=== PATIENT | female | born 1955 | race Two or more races ===

== ENCOUNTER 2019-10-03 06:39 | Inpatient (IN) | payer MEDICAID ==
[~2019-10-03] VITALS: Ht 152.4 cm; Wt 66.5 kg
[2019-10-03] MEDS ORDERED: DOXY-354 PO (07:18)
[2019-10-03] MEDS ORDERED: OXYGEN THERAPY IH SCH (08:00)
[2019-10-03 08:22] LABS: BASOPHILS % (AUTO) 0.1 % (0.0-2.0); EOSINOPHILS % (AUTO) 0 % (1.0-6.0); HEMATOCRIT 34.5 % (36-46); HEMOGLOBIN 12.1 g/dL (12.0-16.0); LYMPHOCYTES # (AUTO) 0.6 K/uL (1.0-4.8); LYMPHOCYTES % (AUTO) 5.6 % (22.0-44.0); MEAN CORPUSCULAR HEMOGLOBIN 29.5 pg (26.0-34.0); MEAN CORPUSCULAR HGB CONC 34.9 G/dL (31.0-37.0); MEAN CORPUSCULAR VOLUME 85 fL (80-100); MONOCYTES # (AUTO) 0.3 K/uL (0.1-1.0); MONOCYTES % (AUTO) 2.7 % (2.0-9.0); PLATELET COUNT (AUTO) 337 K/uL (150-450); RED BLOOD CELL COUNT(AUTO) 4.09 MIL/uL (4.00-5.20); RED CELL DISTRIBUTION WIDTH 13.5 % (11.5-14.5)
[2019-10-03 08:26] LABS: NEUTROPHILS % (AUTO) 91.6 % (40.0-70.0)
[2019-10-03 08:42] LABS: D-DIMER 0.53 mg/L FEU (0.00-0.50); PROTHROMBIN TIME 10.2 SEC (9.4-11.6)
[2019-10-03 08:58] LABS: B-TYPE NATRIURETIC PEPTIDE 174 pg/mL (0-100)
[2019-10-03 08:59] LABS: ALANINE AMINOTRANSFERASE 40 U/L (12-78); ALKALINE PHOSPHATASE 76 U/L (46-116); ANION GAP 12 mmol/L (8-16); ASPARTATE AMINOTRANSFERASE 55 U/L (15-37); BILIRUBIN,TOTAL 0.5 mg/dL (0.1-1.0); CALCIUM, TOTAL 8.5 mg/dL (8.8-10.5); CARBON DIOXIDE 25 mmol/L (22-29); CHLORIDE 100 mmol/L (98-107); CREATINE KINASE, TOTAL ONLY 444 U/L (26-192); CREATININE 0.72 mg/dL (0.60-1.30); FREE T4 (FREE THYROXINE) 1.22 ng/dL (0.76-1.46); GLOMERULAR FILTR. RATE CALC > 60 mL/min (>60); GLUCOSE,RANDOM 131 mg/dL (70-110); LACTATE DEHYDROGENASE 355 U/L (81-234); LIPASE 262 U/L (73-393); SODIUM SERUM 137 mmol/L (136-145); THYROID STIMULATING HORMONE 0.61 uIU/mL (0.36-3.74); TOTAL PROTEIN, SERUM 7.5 g/dL (6.4-8.2); UREA NITROGEN, BLOOD 11 mg/dL (7-18)
[2019-10-03 09:14] LABS: INFLUENZA TYPE A NEGATIVE FOR TYPE A (NEGATIVE); INFLUENZA TYPE B NEGATIVE FOR TYPE B (NEGATIVE)
[2019-10-03] MEDS ORDERED: AZITHROMYCIN 500 MG/NS 250 ML IV ONE (10:30)
[2019-10-03] MEDS ORDERED: ACETAMINOPHEN/CODEINE 300-30 MG TABLET PO ONE (10:30)
[2019-10-03] MEDS ORDERED: GuaiFENesin/D-METHORPHAN [SUGAR-FREE] 200-20MG/10 ML SYRUP UDCUP PO ONE (10:30)
[2019-10-03] MEDS ORDERED: CefTRIAXone 1 GM/DEXTROSE 50 ML IV ONE (10:30)
[2019-10-03] MEDS ORDERED: ACETAMINOPHEN 325 MG TABLET PO PRN (10:30)
[2019-10-03] MEDS ORDERED: 0.9% SODIUM CHLORIDE 10 ML SYRINGE IVP PRN (10:30)
[2019-10-03] MEDS ORDERED: ONDANSETRON HCL 4 MG/2 ML VIAL IVP PRN (10:30)
[2019-10-03] MEDS ORDERED: POTASSIUM CHLORIDE 10% 40 MEQ/30 ML LIQUID UDCUP PO ONE (10:30)
[2019-10-03] MEDS: OXYGEN THERAPY IH SCH ×2 (10:35→21:16)
[2019-10-03 11:20] LABS: ABG A-A DIFF O2 89.9 mmHg (10-20.0); ABG BASE EXCESS 1.6 mmol/L (-2.0-3.0); ABG CARBOXYHEMOGLOBIN 0.3 % (0.0-1.5); ABG HCO3 26.5 mmol/L (22.0-26.0); ABG METHEMOGLOBIN 0.2 % (0.0-1.5); ABG OXYGEN CONTENT 16.8 mL/dL (15.0-23.0); ABG OXYHEMOGLOBIN 94.5 % (94.0-100.0); ABG PCO2 30 mmHg (35-45); ABG PH 7.525 (7.35-7.450); ABG TOTAL HEMOGLOBIN 12.6 G/dL (12.0-18.0); SOURCE, BLOOD GAS ARTERIAL; TEMPERATURE, FAHRENHEIT, BG 98.9 FAHREN (96.0-98.6)
[2019-10-03 11:22] LABS: SITE, BLOOD GAS LFT RADIAL
[2019-10-03 11:23] LABS: O2 DEVICE,BLOOD GAS CANNULA (ROOM AIR)
[2019-10-03] MEDS ORDERED: REMDESIVIR **INVESTIGATIONAL** 200 MG in SODIUM CHLORIDE 0.9% 210 ML IV ONE (13:00)
[2019-10-03 14:43] LABS: FERRITIN 549 ng/mL (8-252)
[2019-10-03] MEDS ORDERED: HYDROCODONE/ACETAMINOPHEN 5-325 MG TABLET PO PRN (19:15)
[2019-10-03] MEDS ORDERED: IPRATROPIUM BROMIDE 0.5 MG/2.5 ML NEB SOLUTION NEB PRN (19:15)
[2019-10-03] MEDS ORDERED: ZOLPIDEM TARTRATE 5 MG TABLET PO PRN (19:15)
[2019-10-03] MEDS ORDERED: MORPHINE SULFATE 2 MG/ML SYRINGE IVP PRN (19:15)
[2019-10-03] MEDS ORDERED: ALBUTEROL SULFATE 2.5 MG/0.5 ML NEB SOLUTION NEB PRN (19:15)
[2019-10-03] MEDS ORDERED: MAGNESIUM SULFATE 2 GM/WATER 50 ML IV PRN (19:45)
[2019-10-03] MEDS ORDERED: MAGNESIUM SULFATE 4 GM/WATER 100 ML IV PRN (19:45)
[2019-10-03 20:00] VITALS: BP 141/67
[2019-10-03] MEDS: DOCUSATE SODIUM 100 MG CAPSULE PO SCH (21:18)
[2019-10-03] MEDS: MAGNESIUM OXIDE 400 MG TABLET PO PRN (21:18)
[2019-10-03] MEDS: ACETAMINOPHEN 325 MG TABLET PO PRN (21:18)
[2019-10-03] MEDS: ENOXAPARIN SODIUM 30 MG/0.3 ML PF SYRINGE SQ SCH (22:11)
[2019-10-03 23:54] VITALS: BP 104/61
[2019-10-04] VITALS (12 sets, daily range): BP systolic 105–138; BP diastolic 54–80
[2019-10-04] MEDS ORDERED: PNEUMOCOCCAL VACCINE POLYVALENT 0.5 ML VIAL [PPSV23] IM ONE (01:30)
[2019-10-04 01:51] LABS: APPEARANCE,URINE CLEAR (CLEAR); BILIRUBIN,URINE NEGATIVE (NEGATIVE); GLUCOSE, URINE (UA) NEGATIVE (NEGATIVE); KETONES,URINE NEGATIVE (NEGATIVE); LEUKOCYTE ESTERASE ,URINE NEGATIVE (NEGATIVE); NITRATE,URINE NEGATIVE (NEGATIVE); OCCULT BLOOD,URINE NEGATIVE (NEGATIVE); PH,URINE 6.5 (5.0-8.0); PROTEIN,URINE SEE CONFIRM (NEGATIVE)
[2019-10-04 01:56] LABS: AMPHET/METH SCREEN,URINE NEGATIVE (NEGATIVE); BARBITURATE SCREEN, URINE NEGATIVE (NEGATIVE); BENZODIAZEPINES SCREEN,URINE NEGATIVE (NEGATIVE); CANNABINOID SCREEN,URINE POSITIVE (NEGATIVE); COCAINE SCREEN,URINE NEGATIVE (NEGATIVE); METHADONE SCREEN, URINE NEGATIVE (NEGATIVE); OPIATE SCREEN,URINE POSITIVE (NEGATIVE)
[2019-10-04 01:58] LABS: PHENCYCLIDINE SCREEN,URINE NEGATIVE (NEGATIVE)
[2019-10-04 02:07] LABS: BACTERIA,URINE None Seen /HPF (None Seen); RBC,URINE None Seen /HPF (0-2); SQUAMOUS EPITHELIAL CELL,UR Few /LPF (None Seen); SULFOSALICYLIC ACID,URINE 1+ (Negative)
[2019-10-04] MEDS: MAGNESIUM OXIDE 400 MG TABLET PO PRN ×2 (05:40→08:41)
[2019-10-04] MEDS: PANTOPRAZOLE SODIUM 40 MG DR TABLET PO SCH (08:26)
[2019-10-04] MEDS: ENOXAPARIN SODIUM 30 MG/0.3 ML PF SYRINGE SQ SCH ×2 (08:26→20:19)
[2019-10-04] MEDS: ACETAMINOPHEN 325 MG TABLET PO PRN (08:26)
[2019-10-04] MEDS: DOCUSATE SODIUM 100 MG CAPSULE PO SCH ×2 (08:26→20:20)
[2019-10-04 08:29] LABS: RED BLOOD CELL COUNT(AUTO) 3.87 MIL/uL (4.00-5.20)
[2019-10-04 08:30] LABS: BASOPHILS % (AUTO) 0.2 % (0.0-2.0); EOSINOPHILS % (AUTO) 0 % (1.0-6.0); HEMATOCRIT 32.9 % (36-46); HEMOGLOBIN 11.6 g/dL (12.0-16.0); LYMPHOCYTES # (AUTO) 0.8 K/uL (1.0-4.8); LYMPHOCYTES % (AUTO) 9.2 % (22.0-44.0); MEAN CORPUSCULAR HEMOGLOBIN 30.1 pg (26.0-34.0); MEAN CORPUSCULAR HGB CONC 35.4 G/dL (31.0-37.0); MEAN CORPUSCULAR VOLUME 85 fL (80-100); MONOCYTES # (AUTO) 0.3 K/uL (0.1-1.0); MONOCYTES % (AUTO) 3.3 % (2.0-9.0); NEUTROPHILS # (AUTO) 7.5 K/uL (1.8-7.7); PLATELET COUNT (AUTO) 373 K/uL (150-450); RED CELL DISTRIBUTION WIDTH 13.4 % (11.5-14.5)
[2019-10-04 08:56] LABS: NEUTROPHILS % (AUTO) 87.3 % (40.0-70.0)
[2019-10-04 09:12] LABS: ALANINE AMINOTRANSFERASE 41 U/L (12-78); ALBUMIN 2.6 g/dL (3.4-5.0); ALKALINE PHOSPHATASE 69 U/L (46-116); ANION GAP 9 mmol/L (8-16); ASPARTATE AMINOTRANSFERASE 63 U/L (15-37); BILIRUBIN,TOTAL 0.4 mg/dL (0.1-1.0); C-REACTIVE PROTEIN QUANT 19.75 mg/dL (0.00-0.30); CALCIUM, TOTAL 8.4 mg/dL (8.8-10.5); CARBON DIOXIDE 26 mmol/L (22-29); CHLORIDE 104 mmol/L (98-107); CREATININE 0.68 mg/dL (0.60-1.30); FERRITIN 650 ng/mL (8-252); GLOMERULAR FILTR. RATE CALC > 60 mL/min (>60); GLUCOSE,RANDOM 113 mg/dL (70-110); POTASSIUM 3.6 mmol/L (3.5-5.1); SODIUM SERUM 139 mmol/L (136-145); UREA NITROGEN, BLOOD 16 mg/dL (7-18)
[2019-10-04] MEDS: ONDANSETRON HCL 4 MG/2 ML VIAL IVP PRN ×2 (09:21→22:21)
[2019-10-04] MEDS: REMDESIVIR **INVESTIGATIONAL** 100 MG in SODIUM CHLORIDE 0.9% 230 ML IV SCH (13:37)
[2019-10-04] MEDS ORDERED: SODIUM CHLORIDE 0.9% 250 ML IV ONE (16:50)
[2019-10-05 05:47] VITALS: BP 132/82
[2019-10-05 07:26] LABS: BASOPHILS % (AUTO) 0.1 % (0.0-2.0); EOSINOPHILS % (AUTO) 0 % (1.0-6.0); HEMATOCRIT 32.3 % (36-46); HEMOGLOBIN 11.2 g/dL (12.0-16.0); LYMPHOCYTES # (AUTO) 0.8 K/uL (1.0-4.8); LYMPHOCYTES % (AUTO) 8.7 % (22.0-44.0); MEAN CORPUSCULAR HEMOGLOBIN 29.6 pg (26.0-34.0); MEAN CORPUSCULAR HGB CONC 34.8 G/dL (31.0-37.0); MEAN CORPUSCULAR VOLUME 85 fL (80-100); MONOCYTES # (AUTO) 0.3 K/uL (0.1-1.0); MONOCYTES % (AUTO) 2.7 % (2.0-9.0); NEUTROPHILS # (AUTO) 8.5 K/uL (1.8-7.7); PLATELET COUNT (AUTO) 419 K/uL (150-450); RED BLOOD CELL COUNT(AUTO) 3.79 MIL/uL (4.00-5.20); RED CELL DISTRIBUTION WIDTH 13.4 % (11.5-14.5)
[2019-10-05 07:32] LABS: NEUTROPHILS % (AUTO) 88.5 % (40.0-70.0)
[2019-10-05 07:40] VITALS: BP 119/65
[2019-10-05 08:30] LABS: ALANINE AMINOTRANSFERASE 40 U/L (12-78); ALBUMIN 2.4 g/dL (3.4-5.0); ALKALINE PHOSPHATASE 74 U/L (46-116); ANION GAP 11 mmol/L (8-16); ASPARTATE AMINOTRANSFERASE 56 U/L (15-37); BILIRUBIN,TOTAL 0.4 mg/dL (0.1-1.0); C-REACTIVE PROTEIN QUANT 18.56 mg/dL (0.00-0.30); CALCIUM, TOTAL 8.4 mg/dL (8.8-10.5); CARBON DIOXIDE 24 mmol/L (22-29); CHLORIDE 104 mmol/L (98-107); CREATININE 0.67 mg/dL (0.60-1.30); FERRITIN 731 ng/mL (8-252); GLOMERULAR FILTR. RATE CALC > 60 mL/min (>60); GLUCOSE,RANDOM 114 mg/dL (70-110); POTASSIUM 3.5 mmol/L (3.5-5.1); SODIUM SERUM 139 mmol/L (136-145); TOTAL PROTEIN, SERUM 6.9 g/dL (6.4-8.2); UREA NITROGEN, BLOOD 17 mg/dL (7-18)
[2019-10-05] MEDS: PANTOPRAZOLE SODIUM 40 MG DR TABLET PO SCH (08:41)
[2019-10-05] MEDS: ACETAMINOPHEN 325 MG TABLET PO PRN (08:41)
[2019-10-05] MEDS: DOCUSATE SODIUM 100 MG CAPSULE PO SCH ×2 (08:41→21:46)
[2019-10-05] MEDS: ENOXAPARIN SODIUM 30 MG/0.3 ML PF SYRINGE SQ SCH ×2 (08:42→21:46)
[2019-10-05 11:35] VITALS: BP 100/48
[2019-10-05] MEDS: REMDESIVIR **INVESTIGATIONAL** 100 MG in SODIUM CHLORIDE 0.9% 230 ML IV SCH (12:51)
[2019-10-05] MEDS: ONDANSETRON HCL 4 MG/2 ML VIAL IVP PRN (15:57)
[2019-10-05 16:30] VITALS: BP 117/61
[2019-10-05 20:39] VITALS: BP 126/60
[2019-10-05] MEDS: BENZONATATE 100 MG CAPSULE PO PRN (22:02)
[2019-10-06 00:57] VITALS: BP 129/61
[2019-10-06 05:13] VITALS: BP 112/44
[2019-10-06] MEDS: ONDANSETRON HCL 4 MG/2 ML VIAL IVP PRN (05:28)
[2019-10-06] MEDS: ACETAMINOPHEN 325 MG TABLET PO PRN ×2 (05:29→10:36)
[2019-10-06 07:17] LABS: BASOPHILS % (AUTO) 0.1 % (0.0-2.0); EOSINOPHILS % (AUTO) 0 % (1.0-6.0); HEMOGLOBIN 11.4 g/dL (12.0-16.0); LYMPHOCYTES # (AUTO) 0.6 K/uL (1.0-4.8); LYMPHOCYTES % (AUTO) 5.4 % (22.0-44.0); MEAN CORPUSCULAR HEMOGLOBIN 29.6 pg (26.0-34.0); MEAN CORPUSCULAR HGB CONC 34.6 G/dL (31.0-37.0); MEAN CORPUSCULAR VOLUME 85 fL (80-100); MONOCYTES # (AUTO) 0.3 K/uL (0.1-1.0); MONOCYTES % (AUTO) 2.6 % (2.0-9.0); NEUTROPHILS # (AUTO) 9.5 K/uL (1.8-7.7); PLATELET COUNT (AUTO) 512 K/uL (150-450); RED BLOOD CELL COUNT(AUTO) 3.86 MIL/uL (4.00-5.20); RED CELL DISTRIBUTION WIDTH 13.6 % (11.5-14.5)
[2019-10-06 07:27] LABS: NEUTROPHILS % (AUTO) 91.9 % (40.0-70.0)
[2019-10-06 07:50] VITALS: BP 104/46
[2019-10-06 07:53] LABS: ALANINE AMINOTRANSFERASE 36 U/L (12-78); ALBUMIN 2.3 g/dL (3.4-5.0); ALKALINE PHOSPHATASE 83 U/L (46-116); ANION GAP 13 mmol/L (8-16); ASPARTATE AMINOTRANSFERASE 50 U/L (15-37); BILIRUBIN,TOTAL 0.6 mg/dL (0.1-1.0); CALCIUM, TOTAL 8.1 mg/dL (8.8-10.5); CARBON DIOXIDE 23 mmol/L (22-29); CHLORIDE 104 mmol/L (98-107); CREATININE 0.75 mg/dL (0.60-1.30); FERRITIN 562 ng/mL (8-252); GLOMERULAR FILTR. RATE CALC > 60 mL/min (>60); GLUCOSE,RANDOM 135 mg/dL (70-110); SODIUM SERUM 140 mmol/L (136-145); TOTAL PROTEIN, SERUM 6.9 g/dL (6.4-8.2); UREA NITROGEN, BLOOD 15 mg/dL (7-18)
[2019-10-06] MEDS ORDERED: SODIUM CHLORIDE 0.9% 500 ML IV ONE (08:22)
[2019-10-06 08:26] LABS: C-REACTIVE PROTEIN QUANT 27.05 mg/dL (0.00-0.30)
[2019-10-06] MEDS: POTASSIUM CHL 10 MEQ/WATER 50 ML IV PRN ×6 (08:29→21:44)
[2019-10-06] MEDS: BENZONATATE 100 MG CAPSULE PO PRN (08:31)
[2019-10-06] MEDS: ENOXAPARIN SODIUM 30 MG/0.3 ML PF SYRINGE SQ SCH ×2 (08:31→21:37)
[2019-10-06] MEDS: PANTOPRAZOLE SODIUM 40 MG DR TABLET PO SCH (08:31)
[2019-10-06] MEDS: DOCUSATE SODIUM 100 MG CAPSULE PO SCH ×2 (08:31→20:19)
[2019-10-06 10:59] LABS: ABG A-A DIFF O2 623.2 mmHg (10-20.0); ABG BASE EXCESS -3.9 mmol/L (-2.0-3.0); ABG CARBOXYHEMOGLOBIN 0.6 % (0.0-1.5); ABG HCO3 22.1 mmol/L (22.0-26.0); ABG METHEMOGLOBIN 0.1 % (0.0-1.5); ABG OXYGEN CONTENT 18.5 mL/dL (15.0-23.0); ABG OXYGEN SATURATION 87.4 % (95.0-98.0); ABG OXYHEMOGLOBIN 86.8 % (94.0-100.0); ABG PCO2 31 mmHg (35-45); ABG PH 7.433 (7.35-7.450); ABG TOTAL HEMOGLOBIN 15.2 G/dL (12.0-18.0); PO2, ARTERIAL BG 56.3 mmHg (79.0-87.0); SOURCE, BLOOD GAS ARTERIAL; TEMPERATURE, FAHRENHEIT, BG 100.2 FAHREN (96.0-98.6)
[2019-10-06 11:00] LABS: O2 DEVICE,BLOOD GAS HFNC (ROOM AIR); SITE, BLOOD GAS LFT RADIAL
[2019-10-06] MEDS ORDERED: ROCURONIUM BROMIDE 10 MG/ML 5 ML VIAL IVP ONE (12:00)
[2019-10-06] MEDS ORDERED: LIDOCAINE/PF 2% 5 ML VIAL INJ ONE (12:00)
[2019-10-06] MEDS ORDERED: PROPOFOL 1% 20 ML VIAL IVP ONE (12:00)
[2019-10-06 12:25] VITALS: BP 111/60
[2019-10-06] MEDS ORDERED: MIDAZOLAM HCL 2 MG/2 ML VIAL ONE (12:30)
[2019-10-06] MEDS ORDERED: FentaNYL CITRATE-PF 100 MCG/2 ML VIAL ONE (12:31)
[2019-10-06] MEDS ORDERED: HEPARIN SODIUM 1000 UNITS/NS 500 ML ONE (12:52)
[2019-10-06] MEDS ORDERED: PROPOFOL 1000 MG/ISO-OSM 100 ML IV ONE (13:38)
[2019-10-06] MEDS ORDERED: NOREPINEPHRINE 4 MG/D5%-WATER 250 ML IV ONE (13:43)
[2019-10-06] MEDS ORDERED: PHENYLEPHRINE HCL IN 0.9% NACL 400 MCG/10 ML SYRINGE IVP ONE (13:50)
[2019-10-06] MEDS ORDERED: MIDAZOLAM HCL 100 MG in DEXTROSE 5%-WATER 180 ML IV PRN (14:31)
[2019-10-06 15:28] LABS: ABG A-A DIFF O2 589.8 mmHg (10-20.0); ABG HCO3 21.3 mmol/L (22.0-26.0); ABG METHEMOGLOBIN 0.1 % (0.0-1.5); ABG OXYGEN CONTENT 16.2 mL/dL (15.0-23.0); ABG OXYGEN SATURATION 94.3 % (95.0-98.0); ABG OXYHEMOGLOBIN 94.2 % (94.0-100.0); ABG PCO2 41 mmHg (35-45); ABG PH 7.343 (7.35-7.450); ABG TOTAL HEMOGLOBIN 12.2 G/dL (12.0-18.0); PO2, ARTERIAL BG 82.2 mmHg (79.0-87.0); SOURCE, BLOOD GAS ARTERIAL; TEMPERATURE, FAHRENHEIT, BG 98.6 FAHREN (96.0-98.6)
[2019-10-06 15:29] LABS: BASOPHILS % (AUTO) 0.5 % (0.0-2.0); EOSINOPHILS % (AUTO) 0.1 % (1.0-6.0); HEMOGLOBIN 11.3 g/dL (12.0-16.0); LYMPHOCYTES # (AUTO) 0.5 K/uL (1.0-4.8); LYMPHOCYTES % (AUTO) 4.5 % (22.0-44.0); MEAN CORPUSCULAR HEMOGLOBIN 29.3 pg (26.0-34.0); MEAN CORPUSCULAR HGB CONC 34.2 G/dL (31.0-37.0); MEAN CORPUSCULAR VOLUME 86 fL (80-100); MONOCYTES # (AUTO) 0.2 K/uL (0.1-1.0); MONOCYTES % (AUTO) 2.1 % (2.0-9.0); NEUTROPHILS # (AUTO) 9.6 K/uL (1.8-7.7); PLATELET COUNT (AUTO) 457 K/uL (150-450); RED BLOOD CELL COUNT(AUTO) 3.86 MIL/uL (4.00-5.20); RED CELL DISTRIBUTION WIDTH 13.6 % (11.5-14.5)
[2019-10-06 15:30] LABS: O2 DEVICE,BLOOD GAS VENTILATOR (ROOM AIR); PEEP,BG 10 cm H2O; SITE, BLOOD GAS A-LINE; VT, ABG 400 ml
[2019-10-06] MEDS: REMDESIVIR **INVESTIGATIONAL** 100 MG in SODIUM CHLORIDE 0.9% 230 ML IV SCH (15:32)
[2019-10-06 15:36] LABS: NEUTROPHILS % (AUTO) 92.8 % (40.0-70.0)
[2019-10-06 15:41] LABS: ANION GAP 13 mmol/L (8-16); CALCIUM, TOTAL 8.4 mg/dL (8.8-10.5); CARBON DIOXIDE 23 mmol/L (22-29); CHLORIDE 107 mmol/L (98-107); CREATININE 0.69 mg/dL (0.60-1.30); GLOMERULAR FILTR. RATE CALC > 60 mL/min (>60); GLUCOSE,RANDOM 147 mg/dL (70-110); POTASSIUM 3.2 mmol/L (3.5-5.1); SODIUM SERUM 143 mmol/L (136-145); UREA NITROGEN, BLOOD 19 mg/dL (7-18)
[2019-10-06 15:57] LABS: ALANINE AMINOTRANSFERASE 35 U/L (12-78); ALBUMIN 2.2 g/dL (3.4-5.0); ALKALINE PHOSPHATASE 92 U/L (46-116); ASPARTATE AMINOTRANSFERASE 55 U/L (15-37); BILIRUBIN,TOTAL 0.7 mg/dL (0.1-1.0); FERRITIN 535 ng/mL (8-252)
[2019-10-06 16:00] VITALS: BP 112/54
[2019-10-06 16:06] LABS: INR 1.2 (0.9-1.1); PROTHROMBIN TIME 11.8 SEC (9.4-11.6)
[2019-10-06 16:09] LABS: C-REACTIVE PROTEIN QUANT 27.73 mg/dL (0.00-0.30)
[2019-10-06] MEDS ORDERED: CISATRACURIUM BESYLATE 20 MG in DEXTROSE 5%-WATER 98 ML IV PRN (16:20)
[2019-10-06] MEDS ORDERED: DEXTROSE 5% IV PRN (16:30)
[2019-10-06] MEDS ORDERED: CISATRACURIUM BESYLATE IV PRN (16:30)
[2019-10-06] MEDS ORDERED: WATER IV PRN (16:30)
[2019-10-06] MEDS ORDERED: SODIUM CHLORIDE 0.9% 250 ML IV ONE (18:17)
[2019-10-06] MEDS: PROPOFOL 1000 MG/ISO-OSM 100 ML IV PRN (18:51)
[2019-10-06] MEDS: CISATRACURIUM BESYLATE 50 MG in DEXTROSE 5%-WATER 245 ML IV PRN (19:23)
[2019-10-06] MEDS: NOREPINEPHRINE 4 MG/D5%-WATER 250 ML IV PRN (19:46)
[2019-10-06 20:00] VITALS: BP 109/60
[2019-10-06] MEDS ORDERED: ZOLPIDEM TARTRATE 10 MG TABLET PO PRN (21:30)
[2019-10-06 23:46] LABS: APPEARANCE,URINE CLOUDY (CLEAR); GLUCOSE, URINE (UA) 250 mg/dL (NEGATIVE); KETONES,URINE NEGATIVE (NEGATIVE); LEUKOCYTE ESTERASE ,URINE NEGATIVE (NEGATIVE); NITRATE,URINE NEGATIVE (NEGATIVE); OCCULT BLOOD,URINE NEGATIVE (NEGATIVE); PH,URINE 5.5 (5.0-8.0); PROTEIN,URINE SEE CONFIRM (NEGATIVE)
[2019-10-06 23:52] LABS: BILIRUBIN,URINE PRELIM. POSITIVE (NEGATIVE)
[2019-10-07] VITALS: BP 116/59
[2019-10-07] MEDS ORDERED: VANCOMYCIN HCL 1 GM/D5% WATER 200 ML IV SCH
[2019-10-07] MEDS: PROPOFOL 1000 MG/ISO-OSM 100 ML IV PRN ×4 (00:05→20:08)
[2019-10-07] MEDS: POTASSIUM CHL 10 MEQ/WATER 50 ML IV PRN (00:13)
[2019-10-07 00:15] LABS: BACTERIA,URINE Few /HPF (None Seen); RBC,URINE None Seen /HPF (0-2); SQUAMOUS EPITHELIAL CELL,UR Few /LPF (None Seen); SULFOSALICYLIC ACID,URINE 3+ (Negative); WBC,URINE 0-2 /HPF (0-5); YEAST,URINE None Seen /HPF (None Seen)
[2019-10-07] MEDS ORDERED: VANCOMYCIN HCL 1.25 GM in DEXTROSE 5%-WATER 250 ML IV ONE (00:30)
[2019-10-07] MEDS: PIPERACILLIN/TAZO 3.375 GM/D5W 50 ML IV SCH ×5 (00:45→19:46)
[2019-10-07] MEDS: CISATRACURIUM BESYLATE 50 MG in DEXTROSE 5%-WATER 245 ML IV PRN ×4 (01:46→22:57)
[2019-10-07] MEDS: FentaNYL CITRATE PF 500 MCG in DEXTROSE 5%-WATER 90 ML IV PRN ×4 (02:00→21:28)
[2019-10-07] MEDS: NOREPINEPHRINE 4 MG/D5%-WATER 250 ML IV PRN ×4 (02:50→19:20)
[2019-10-07 04:00] VITALS: BP 143/71
[2019-10-07] MEDS ORDERED: HEPARIN SODIUM 1000 UNITS/NS 500 ML ONE (04:06)
[2019-10-07 07:10] LABS: BASOPHILS % (AUTO) 0.1 % (0.0-2.0); EOSINOPHILS % (AUTO) 0.6 % (1.0-6.0); HEMATOCRIT 31.8 % (36-46); HEMOGLOBIN 10.7 g/dL (12.0-16.0); LYMPHOCYTES # (AUTO) 0.5 K/uL (1.0-4.8); LYMPHOCYTES % (AUTO) 4.3 % (22.0-44.0); MEAN CORPUSCULAR HEMOGLOBIN 28.8 pg (26.0-34.0); MEAN CORPUSCULAR HGB CONC 33.7 G/dL (31.0-37.0); MEAN CORPUSCULAR VOLUME 86 fL (80-100); MONOCYTES # (AUTO) 0.2 K/uL (0.1-1.0); MONOCYTES % (AUTO) 1.9 % (2.0-9.0); NEUTROPHILS # (AUTO) 10.3 K/uL (1.8-7.7); PLATELET COUNT (AUTO) 364 K/uL (150-450); RED BLOOD CELL COUNT(AUTO) 3.72 MIL/uL (4.00-5.20); RED CELL DISTRIBUTION WIDTH 14.1 % (11.5-14.5)
[2019-10-07 07:12] LABS: NEUTROPHILS % (AUTO) 93.1 % (40.0-70.0)
[2019-10-07 07:27] LABS: ALANINE AMINOTRANSFERASE 30 U/L (12-78); ALKALINE PHOSPHATASE 84 U/L (46-116); ANION GAP 10 mmol/L (8-16); ASPARTATE AMINOTRANSFERASE 35 U/L (15-37); BILIRUBIN,TOTAL 0.6 mg/dL (0.1-1.0); CALCIUM, TOTAL 7.7 mg/dL (8.8-10.5); CARBON DIOXIDE 26 mmol/L (22-29); CHLORIDE 101 mmol/L (98-107); CREATININE 0.74 mg/dL (0.60-1.30); FERRITIN 511 ng/mL (8-252); GLOMERULAR FILTR. RATE CALC > 60 mL/min (>60); GLUCOSE,RANDOM 216 mg/dL (70-110); SODIUM SERUM 137 mmol/L (136-145); TOTAL PROTEIN, SERUM 6.7 g/dL (6.4-8.2); UREA NITROGEN, BLOOD 16 mg/dL (7-18)
[2019-10-07 08:00] VITALS: BP 110/59
[2019-10-07] MEDS: DOCUSATE SODIUM 100 MG CAPSULE PO SCH ×2 (08:07→20:56)
[2019-10-07] MEDS: VANCOMYCIN HCL 750 MG in DEXTROSE 5%-WATER 250 ML IV SCH ×2 (08:07→15:47)
[2019-10-07] MEDS: PANTOPRAZOLE SODIUM 40 MG DR TABLET PO SCH (08:07)
[2019-10-07] MEDS: ACETAMINOPHEN 325 MG TABLET PO PRN ×2 (08:07→13:54)
[2019-10-07] MEDS: ENOXAPARIN SODIUM 30 MG/0.3 ML PF SYRINGE SQ SCH ×2 (08:08→20:56)
[2019-10-07 12:00] VITALS: BP 124/61
[2019-10-07 12:11] LABS: ABG A-A DIFF O2 411.5 mmHg (10-20.0); ABG BASE EXCESS -2.1 mmol/L (-2.0-3.0); ABG CARBOXYHEMOGLOBIN 0.2 % (0.0-1.5); ABG HCO3 22.6 mmol/L (22.0-26.0); ABG METHEMOGLOBIN 0.3 % (0.0-1.5); ABG OXYGEN CONTENT 14.9 mL/dL (15.0-23.0); ABG OXYHEMOGLOBIN 91.5 % (94.0-100.0); ABG PCO2 48 mmHg (35-45); ABG TOTAL HEMOGLOBIN 11.6 G/dL (12.0-18.0); SOURCE, BLOOD GAS ARTERIAL; TEMPERATURE, FAHRENHEIT, BG 101.6 FAHREN (96.0-98.6)
[2019-10-07 12:12] LABS: O2 DEVICE,BLOOD GAS VENTILATOR (ROOM AIR); PEEP,BG 10 cm H2O; SITE, BLOOD GAS ARTERIAL LINE; VT, ABG 400 ml
[2019-10-07] MEDS: REMDESIVIR **INVESTIGATIONAL** 100 MG in SODIUM CHLORIDE 0.9% 230 ML IV SCH (13:54)
[2019-10-07 16:00] VITALS: BP 122/61
[2019-10-07 20:00] VITALS: BP 124/54
[2019-10-07] MEDS: DEXAMETHASONE SOD PHOS 4 MG/ML VIAL IVP SCH (23:52)
[2019-10-08] VITALS: BP 67/41
[2019-10-08] MEDS ORDERED: SODIUM CHLORIDE 0.9% 250 ML IV ONE (00:11)
[2019-10-08] MEDS: VANCOMYCIN HCL 750 MG in DEXTROSE 5%-WATER 250 ML IV SCH (00:35)
[2019-10-08] MEDS: PROPOFOL 1000 MG/ISO-OSM 100 ML IV PRN ×3 (00:36→17:24)
[2019-10-08] MEDS: NOREPINEPHRINE 4 MG/D5%-WATER 250 ML IV PRN ×5 (00:39→21:49)
[2019-10-08] MEDS: FentaNYL CITRATE PF 500 MCG in DEXTROSE 5%-WATER 90 ML IV PRN ×2 (00:48→09:08)
[2019-10-08] MEDS: ACETAMINOPHEN 325 MG TABLET PO PRN (02:00)
[2019-10-08] MEDS: CISATRACURIUM BESYLATE 50 MG in DEXTROSE 5%-WATER 245 ML IV PRN ×3 (03:56→20:46)
[2019-10-08 04:00] VITALS: BP 157/65
[2019-10-08 05:50] LABS: BASOPHILS % (AUTO) 0.1 % (0.0-2.0); EOSINOPHILS % (AUTO) 0.4 % (1.0-6.0); HEMATOCRIT 32.8 % (36-46); HEMOGLOBIN 10.9 g/dL (12.0-16.0); LYMPHOCYTES # (AUTO) 0.3 K/uL (1.0-4.8); LYMPHOCYTES % (AUTO) 2.2 % (22.0-44.0); MEAN CORPUSCULAR HEMOGLOBIN 28.8 pg (26.0-34.0); MEAN CORPUSCULAR HGB CONC 33.2 G/dL (31.0-37.0); MEAN CORPUSCULAR VOLUME 87 fL (80-100); MONOCYTES # (AUTO) 0.3 K/uL (0.1-1.0); MONOCYTES % (AUTO) 2.7 % (2.0-9.0); PLATELET COUNT (AUTO) 267 K/uL (150-450); RED BLOOD CELL COUNT(AUTO) 3.77 MIL/uL (4.00-5.20); RED CELL DISTRIBUTION WIDTH 13.8 % (11.5-14.5)
[2019-10-08 06:49] LABS: ALBUMIN 1.7 g/dL (3.4-5.0); BILIRUBIN,TOTAL 0.6 mg/dL (0.1-1.0); CREATININE 1.02 mg/dL (0.60-1.30); POTASSIUM 4.3 mmol/L (3.5-5.1); TOTAL PROTEIN, SERUM 6.3 g/dL (6.4-8.2); VANCOMYCIN,RANDOM 14.2 mcg/mL (25.0-50.0)
[2019-10-08] MEDS: PIPERACILLIN/TAZO 3.375 GM/D5W 50 ML IV SCH ×3 (06:52→19:47)
[2019-10-08 07:01] LABS: C-REACTIVE PROTEIN QUANT 35.36 mg/dL (0.00-0.30)
[2019-10-08 07:25] LABS: NEUTROPHILS % (AUTO) 94.6 % (40.0-70.0)
[2019-10-08 08:00] VITALS: BP 136/58
[2019-10-08] MEDS: VANCOMYCIN HCL 1.25 GM in DEXTROSE 5%-WATER 250 ML IV SCH ×2 (09:06→16:29)
[2019-10-08] MEDS: DOCUSATE SODIUM 100 MG CAPSULE PO SCH ×2 (09:06→20:09)
[2019-10-08] MEDS: DEXAMETHASONE SOD PHOS 4 MG/ML VIAL IVP SCH ×2 (09:06→16:29)
[2019-10-08] MEDS: ENOXAPARIN SODIUM 30 MG/0.3 ML PF SYRINGE SQ SCH (09:06)
[2019-10-08] MEDS: PANTOPRAZOLE SODIUM 40 MG DR TABLET PO SCH (09:10)
[2019-10-08 12:00] VITALS: BP 123/53
[2019-10-08] MEDS: REMDESIVIR **INVESTIGATIONAL** 100 MG in SODIUM CHLORIDE 0.9% 230 ML IV SCH (14:23)
[2019-10-08 16:00] VITALS: BP 137/62
[2019-10-08 20:00] VITALS: BP 131/68
[2019-10-08] MEDS: ENOXAPARIN SODIUM 80 MG/0.8 ML PF SYRINGE SQ SCH (20:11)
[2019-10-09] VITALS: BP 128/57
[2019-10-09] MEDS: VANCOMYCIN HCL 1.25 GM in DEXTROSE 5%-WATER 250 ML IV SCH ×3 (00:04→15:55)
[2019-10-09] MEDS: DEXAMETHASONE SOD PHOS 4 MG/ML VIAL IVP SCH ×3 (00:05→16:02)
[2019-10-09] MEDS ORDERED: SODIUM CHLORIDE 0.9% 250 ML IV ONE (00:06)
[2019-10-09] MEDS: PROPOFOL 1000 MG/ISO-OSM 100 ML IV PRN ×3 (00:09→19:47)
[2019-10-09] MEDS: PIPERACILLIN/TAZO 3.375 GM/D5W 50 ML IV SCH ×4 (00:10→19:05)
[2019-10-09] MEDS: CISATRACURIUM BESYLATE 50 MG in DEXTROSE 5%-WATER 245 ML IV PRN ×3 (02:12→17:23)
[2019-10-09 04:00] VITALS: BP 121/58
[2019-10-09 05:44] LABS: BASOPHILS % (AUTO) 0.1 % (0.0-2.0); EOSINOPHILS % (AUTO) 0 % (1.0-6.0); HEMATOCRIT 29.5 % (36-46); HEMOGLOBIN 10.3 g/dL (12.0-16.0); LYMPHOCYTES # (AUTO) 0.4 K/uL (1.0-4.8); LYMPHOCYTES % (AUTO) 3.9 % (22.0-44.0); MEAN CORPUSCULAR HEMOGLOBIN 29.8 pg (26.0-34.0); MEAN CORPUSCULAR HGB CONC 34.7 G/dL (31.0-37.0); MEAN CORPUSCULAR VOLUME 86 fL (80-100); MONOCYTES # (AUTO) 0.3 K/uL (0.1-1.0); MONOCYTES % (AUTO) 3.4 % (2.0-9.0); NEUTROPHILS # (AUTO) 9.1 K/uL (1.8-7.7); PLATELET COUNT (AUTO) 231 K/uL (150-450); RED BLOOD CELL COUNT(AUTO) 3.44 MIL/uL (4.00-5.20); RED CELL DISTRIBUTION WIDTH 13.8 % (11.5-14.5)
[2019-10-09 05:55] LABS: NEUTROPHILS % (AUTO) 92.6 % (40.0-70.0)
[2019-10-09 06:09] LABS: ALANINE AMINOTRANSFERASE 22 U/L (12-78); ALBUMIN 1.5 g/dL (3.4-5.0); ALKALINE PHOSPHATASE 70 U/L (46-116); ANION GAP 7 mmol/L (8-16); ASPARTATE AMINOTRANSFERASE 20 U/L (15-37); BILIRUBIN,TOTAL 0.4 mg/dL (0.1-1.0); CALCIUM, TOTAL 8.1 mg/dL (8.8-10.5); CARBON DIOXIDE 31 mmol/L (22-29); CHLORIDE 100 mmol/L (98-107); CREATININE 0.77 mg/dL (0.60-1.30); FERRITIN 592 ng/mL (8-252); GLOMERULAR FILTR. RATE CALC > 60 mL/min (>60); GLUCOSE,RANDOM 313 mg/dL (70-110); POTASSIUM 3.5 mmol/L (3.5-5.1); SODIUM SERUM 138 mmol/L (136-145); TOTAL PROTEIN, SERUM 6.2 g/dL (6.4-8.2); UREA NITROGEN, BLOOD 19 mg/dL (7-18)
[2019-10-09 06:28] LABS: C-REACTIVE PROTEIN QUANT 25.69 mg/dL (0.00-0.30)
[2019-10-09 08:00] VITALS: BP 118/45
[2019-10-09] MEDS: ENOXAPARIN SODIUM 80 MG/0.8 ML PF SYRINGE SQ SCH (08:50)
[2019-10-09] MEDS: DOCUSATE SODIUM 100 MG CAPSULE PO SCH ×2 (08:50→21:09)
[2019-10-09] MEDS: PANTOPRAZOLE SODIUM 40 MG DR TABLET PO SCH (08:50)
[2019-10-09 12:00] VITALS: BP 118/62
[2019-10-09] MEDS: REMDESIVIR **INVESTIGATIONAL** 100 MG in SODIUM CHLORIDE 0.9% 230 ML IV SCH (12:49)
[2019-10-09] MEDS: POTASSIUM CHLORIDE 20 MEQ ER TABLET PO PRN (13:13)
[2019-10-09] MEDS ORDERED: HEPARIN SODIUM,PORCINE 5,000 UNITS/ML VIAL IVP ONE (14:15)
[2019-10-09] MEDS: HEPARIN SODIUM 25000 UNITS/D5W 250 ML IV PRN (15:54)
[2019-10-09 16:00] VITALS: BP 174/69
[2019-10-09] MEDS: LEVOFLOXACIN 750 MG/D5% WATER 150 ML IV SCH (16:11)
[2019-10-09 16:27] LABS: QUANTIFERON+, Nil Value 0.01 IU/mL; QUANTIFERON+,Mitogen Value 0.07 IU/mL; QUANTIFERON+,TB1 Antigen Value 0.02 IU/mL; QUANTIFERON, TB GOLD PLUS Indeterminate (Negative)
[2019-10-09 20:00] VITALS: BP 143/64
[2019-10-09 20:51] LABS: MAGNESIUM 2.2 mg/dL (1.80-2.40); POTASSIUM 4.3 mmol/L (3.5-5.1)
[2019-10-10] VITALS: BP 154/63
[2019-10-10] MEDS: DEXAMETHASONE SOD PHOS 4 MG/ML VIAL IVP SCH ×3 (00:26→16:10)
[2019-10-10] MEDS: PIPERACILLIN/TAZO 3.375 GM/D5W 50 ML IV SCH ×4 (00:27→19:40)
[2019-10-10] MEDS: CISATRACURIUM BESYLATE 50 MG in DEXTROSE 5%-WATER 245 ML IV PRN ×4 (00:28→21:31)
[2019-10-10] MEDS: FentaNYL CITRATE PF 500 MCG in DEXTROSE 5%-WATER 90 ML IV PRN (00:29)
[2019-10-10 04:00] VITALS: BP 168/66
[2019-10-10 05:44] LABS: BASOPHILS % (AUTO) 0.2 % (0.0-2.0); EOSINOPHILS % (AUTO) 0 % (1.0-6.0); HEMATOCRIT 30.1 % (36-46); HEMOGLOBIN 10.2 g/dL (12.0-16.0); LYMPHOCYTES # (AUTO) 0.3 K/uL (1.0-4.8); LYMPHOCYTES % (AUTO) 2.6 % (22.0-44.0); MEAN CORPUSCULAR HEMOGLOBIN 29.3 pg (26.0-34.0); MEAN CORPUSCULAR VOLUME 86 fL (80-100); MONOCYTES # (AUTO) 0.5 K/uL (0.1-1.0); MONOCYTES % (AUTO) 4.6 % (2.0-9.0); NEUTROPHILS # (AUTO) 10.9 K/uL (1.8-7.7); PLATELET COUNT (AUTO) 258 K/uL (150-450); RED BLOOD CELL COUNT(AUTO) 3.49 MIL/uL (4.00-5.20); RED CELL DISTRIBUTION WIDTH 13.9 % (11.5-14.5)
[2019-10-10 06:07] LABS: D-DIMER 4.19 mg/L FEU (0.00-0.50)
[2019-10-10 06:20] LABS: NEUTROPHILS % (AUTO) 92.6 % (40.0-70.0)
[2019-10-10] MEDS: PROPOFOL 1000 MG/ISO-OSM 100 ML IV PRN ×2 (06:38→16:09)
[2019-10-10 06:40] LABS: ALANINE AMINOTRANSFERASE 19 U/L (12-78); ALBUMIN 1.6 g/dL (3.4-5.0); ALKALINE PHOSPHATASE 72 U/L (46-116); ANION GAP 5 mmol/L (8-16); ASPARTATE AMINOTRANSFERASE 18 U/L (15-37); BILIRUBIN,TOTAL 0.4 mg/dL (0.1-1.0); C-REACTIVE PROTEIN QUANT 10.89 mg/dL (0.00-0.30); CARBON DIOXIDE 31 mmol/L (22-29); CHLORIDE 101 mmol/L (98-107); FERRITIN 606 ng/mL (8-252); GLOMERULAR FILTR. RATE CALC > 60 mL/min (>60); GLUCOSE,RANDOM 228 mg/dL (70-110); POTASSIUM 4.3 mmol/L (3.5-5.1); SODIUM SERUM 137 mmol/L (136-145); TOTAL PROTEIN, SERUM 6.3 g/dL (6.4-8.2); UREA NITROGEN, BLOOD 29 mg/dL (7-18)
[2019-10-10 08:00] VITALS: BP 137/74
[2019-10-10] MEDS ORDERED: SODIUM CHLORIDE 0.9% 250 ML IV ONE (08:31)
[2019-10-10] MEDS: DOCUSATE SODIUM 100 MG CAPSULE PO SCH ×2 (08:34→21:30)
[2019-10-10] MEDS: PANTOPRAZOLE SODIUM 40 MG DR TABLET PO SCH (08:35)
[2019-10-10 12:00] VITALS: BP 151/74
[2019-10-10] MEDS: REMDESIVIR **INVESTIGATIONAL** 100 MG in SODIUM CHLORIDE 0.9% 230 ML IV SCH (13:13)
[2019-10-10 16:00] VITALS: BP 95/56
[2019-10-10] MEDS: LEVOFLOXACIN 750 MG/D5% WATER 150 ML IV SCH (16:08)
[2019-10-10] MEDS: HEPARIN SODIUM 25000 UNITS/D5W 250 ML IV PRN (19:54)
[2019-10-10 20:00] VITALS: BP 145/77
[2019-10-10 20:25] LABS: ABG A-A DIFF O2 278.4 mmHg (10-20.0); ABG BASE EXCESS 3.8 mmol/L (-2.0-3.0); ABG HCO3 27.6 mmol/L (22.0-26.0); ABG METHEMOGLOBIN 0.3 % (0.0-1.5); ABG OXYGEN CONTENT 14.4 mL/dL (15.0-23.0); ABG OXYGEN SATURATION 93.8 % (95.0-98.0); ABG OXYHEMOGLOBIN 93.5 % (94.0-100.0); ABG PCO2 41 mmHg (35-45); ABG PH 7.447 (7.35-7.450); ABG TOTAL HEMOGLOBIN 10.9 G/dL (12.0-18.0); PO2, ARTERIAL BG 67.8 mmHg (79.0-87.0); SOURCE, BLOOD GAS ARTERIAL; TEMPERATURE, FAHRENHEIT, BG 98.6 FAHREN (96.0-98.6)
[2019-10-10 20:28] LABS: SITE, BLOOD GAS ARTERIAL LINE
[2019-10-10 20:29] LABS: O2 DEVICE,BLOOD GAS VENTILATOR (ROOM AIR); PEEP,BG 8 cm H2O; VT, ABG 400 ml
[2019-10-10 20:58] LABS: PHOSPHORUS 2.8 mg/dL (2.5-4.9)
[2019-10-10] MEDS ORDERED: DEXTROSE 50%-WATER 25 GM/50 ML SYRINGE IVP PRN (21:00)
[2019-10-10] MEDS: MAGNESIUM HYDROXIDE SUSPENSION 30 ML UDCUP PO PRN (21:30)
[2019-10-10] MEDS: INSULIN LISPRO 100 UNITS/ML SQ PRN (22:39)
[2019-10-10 22:55] LABS: GLUCOSE,POINT OF CARE 223 MG/DL (70-110)
[2019-10-11] VITALS (7 sets, daily range): BP systolic 113–164; BP diastolic 58–90
[2019-10-11] MEDS: DEXAMETHASONE SOD PHOS 4 MG/ML VIAL IVP SCH ×3 (00:15→16:48)
[2019-10-11] MEDS: PIPERACILLIN/TAZO 3.375 GM/D5W 50 ML IV SCH ×4 (00:16→17:53)
[2019-10-11] MEDS: FentaNYL CITRATE PF 500 MCG in DEXTROSE 5%-WATER 90 ML IV PRN ×2 (00:43→09:54)
[2019-10-11] MEDS: PROPOFOL 1000 MG/ISO-OSM 100 ML IV PRN ×4 (01:25→20:38)
[2019-10-11] MEDS: CISATRACURIUM BESYLATE 50 MG in DEXTROSE 5%-WATER 245 ML IV PRN ×4 (03:56→23:03)
[2019-10-11] MEDS: INSULIN LISPRO 100 UNITS/ML SQ PRN ×3 (05:54→17:54)
[2019-10-11 06:07] LABS: BASOPHILS % (AUTO) 0.1 % (0.0-2.0); EOSINOPHILS % (AUTO) 0.1 % (1.0-6.0); HEMATOCRIT 29.6 % (36-46); HEMOGLOBIN 10.1 g/dL (12.0-16.0); LYMPHOCYTES # (AUTO) 0.5 K/uL (1.0-4.8); LYMPHOCYTES % (AUTO) 4.1 % (22.0-44.0); MEAN CORPUSCULAR HEMOGLOBIN 29.5 pg (26.0-34.0); MEAN CORPUSCULAR HGB CONC 34.3 G/dL (31.0-37.0); MEAN CORPUSCULAR VOLUME 86 fL (80-100); MONOCYTES # (AUTO) 0.5 K/uL (0.1-1.0); MONOCYTES % (AUTO) 4.7 % (2.0-9.0); NEUTROPHILS # (AUTO) 10.7 K/uL (1.8-7.7); PLATELET COUNT (AUTO) 285 K/uL (150-450); RED BLOOD CELL COUNT(AUTO) 3.44 MIL/uL (4.00-5.20); RED CELL DISTRIBUTION WIDTH 14.1 % (11.5-14.5)
[2019-10-11 06:09] LABS: GLUCOSE,POINT OF CARE 184 MG/DL (70-110)
[2019-10-11 07:06] LABS: ALANINE AMINOTRANSFERASE 22 U/L (12-78); ALBUMIN 1.6 g/dL (3.4-5.0); ALKALINE PHOSPHATASE 66 U/L (46-116); ANION GAP 6 mmol/L (8-16); ASPARTATE AMINOTRANSFERASE 28 U/L (15-37); BILIRUBIN,TOTAL 0.5 mg/dL (0.1-1.0); C-REACTIVE PROTEIN QUANT 5.08 mg/dL (0.00-0.30); CALCIUM, TOTAL 7.8 mg/dL (8.8-10.5); CARBON DIOXIDE 33 mmol/L (22-29); CHLORIDE 101 mmol/L (98-107); CREATININE 0.66 mg/dL (0.60-1.30); FERRITIN 505 ng/mL (8-252); GLOMERULAR FILTR. RATE CALC > 60 mL/min (>60); GLUCOSE,RANDOM 198 mg/dL (70-110); PHOSPHORUS 2.3 mg/dL (2.5-4.9); POTASSIUM 4.1 mmol/L (3.5-5.1); SODIUM SERUM 140 mmol/L (136-145); TOTAL PROTEIN, SERUM 5.9 g/dL (6.4-8.2); UREA NITROGEN, BLOOD 26 mg/dL (7-18)
[2019-10-11] MEDS: PANTOPRAZOLE SODIUM 40 MG DR TABLET PO SCH (07:56)
[2019-10-11] MEDS: DOCUSATE SODIUM 100 MG CAPSULE PO SCH ×2 (07:57→20:37)
[2019-10-11] MEDS: HEPARIN SODIUM 25000 UNITS/D5W 250 ML IV PRN (09:50)
[2019-10-11] MEDS: HEPARIN SODIUM,PORCINE 5,000 UNITS/ML VIAL IVP PRN (09:53)
[2019-10-11] MEDS ORDERED: POTASSIUM PHOS M BASIC D BASIC IV ONE (13:15)
[2019-10-11] MEDS ORDERED: WATER IV ONE (13:15)
[2019-10-11] MEDS ORDERED: DEXTROSE 5% IV ONE (13:15)
[2019-10-11] MEDS ORDERED: DEXTROSE 50%-WATER 25 GM/50 ML SYRINGE IVP PRN ×2 (13:45→17:45)
[2019-10-11] MEDS: REMDESIVIR **INVESTIGATIONAL** 100 MG in SODIUM CHLORIDE 0.9% 230 ML IV SCH (13:55)
[2019-10-11] MEDS: LEVOFLOXACIN 750 MG/D5% WATER 150 ML IV SCH (15:45)
[2019-10-11 17:07] LABS: GLUCOSE,POINT OF CARE 178 MG/DL (70-110)
[2019-10-11] MEDS ORDERED: AMINO ACIDS/PROTEIN HYDROLYS 30 ML TUBE PO SCH (17:30)
[2019-10-11] MEDS: MULTIVITAMINS WITH MINERALS, THERAPEUTIC TABLET GT SCH (20:37)
[2019-10-11] MEDS: MAGNESIUM HYDROXIDE SUSPENSION 30 ML UDCUP PO PRN (20:37)
[2019-10-12] VITALS: BP 87/49
[2019-10-12 02:32] LABS: GLUCOMETER DEV NAME(LOC) 4E.2; GLUCOSE,POINT OF CARE 179 MG/DL (70-110)
[2019-10-12] MEDS: FentaNYL CITRATE PF 500 MCG in DEXTROSE 5%-WATER 90 ML IV PRN ×5 (03:57→20:57)
[2019-10-12] MEDS: CISATRACURIUM BESYLATE 50 MG in DEXTROSE 5%-WATER 245 ML IV PRN ×3 (03:58→20:57)
[2019-10-12 04:00] VITALS: BP 141/78
[2019-10-12 05:35] LABS: GLUCOSE,POINT OF CARE 151 MG/DL (70-110)
[2019-10-12] MEDS: DEXAMETHASONE SOD PHOS 4 MG/ML VIAL IVP SCH ×3 (05:55→15:41)
[2019-10-12] MEDS: PIPERACILLIN/TAZO 3.375 GM/D5W 50 ML IV SCH ×4 (05:55→17:49)
[2019-10-12 06:21] LABS: HEMATOCRIT 31.5 % (36-46); HEMOGLOBIN 10.9 g/dL (12.0-16.0); MEAN CORPUSCULAR HGB CONC 34.7 G/dL (31.0-37.0); MEAN CORPUSCULAR VOLUME 87 fL (80-100); PLATELET COUNT (AUTO) 309 K/uL (150-450); RED BLOOD CELL COUNT(AUTO) 3.64 MIL/uL (4.00-5.20); RED CELL DISTRIBUTION WIDTH 14.1 % (11.5-14.5)
[2019-10-12 07:02] LABS: ALANINE AMINOTRANSFERASE 24 U/L (12-78); ALBUMIN 1.6 g/dL (3.4-5.0); ALKALINE PHOSPHATASE 63 U/L (46-116); ASPARTATE AMINOTRANSFERASE 26 U/L (15-37); BILIRUBIN,TOTAL 0.5 mg/dL (0.1-1.0); C-REACTIVE PROTEIN QUANT 12.57 mg/dL (0.00-0.30); CALCIUM, TOTAL 8.1 mg/dL (8.8-10.5); CHLORIDE 99 mmol/L (98-107); CREATININE 0.54 mg/dL (0.60-1.30); FERRITIN 438 ng/mL (8-252); GLOMERULAR FILTR. RATE CALC > 60 mL/min (>60); GLUCOSE,RANDOM 176 mg/dL (70-110); PHOSPHORUS 2.7 mg/dL (2.5-4.9); POTASSIUM 3.9 mmol/L (3.5-5.1); SODIUM SERUM 136 mmol/L (136-145); TOTAL PROTEIN, SERUM 6.4 g/dL (6.4-8.2); UREA NITROGEN, BLOOD 26 mg/dL (7-18)
[2019-10-12 07:10] LABS: ANION GAP 6 mmol/L (8-16); CARBON DIOXIDE 31 mmol/L (22-29)
[2019-10-12] MEDS: PROPOFOL 1000 MG/ISO-OSM 100 ML IV PRN ×3 (07:27→14:40)
[2019-10-12] MEDS: AMINO ACIDS/PROTEIN HYDROLYS 30 ML TUBE PO SCH ×3 (07:28→17:48)
[2019-10-12] MEDS: DOCUSATE SODIUM 100 MG CAPSULE PO SCH ×2 (07:28→20:58)
[2019-10-12] MEDS: PANTOPRAZOLE SODIUM 40 MG DR TABLET PO SCH (07:28)
[2019-10-12 08:00] VITALS: BP 135/68
[2019-10-12 08:49] LABS: GLUCOSE,POINT OF CARE 167 MG/DL (70-110)
[2019-10-12] MEDS: MAGNESIUM HYDROXIDE SUSPENSION 30 ML UDCUP PO PRN (11:22)
[2019-10-12 11:33] LABS: ABG A-A DIFF O2 382.8 mmHg (10-20.0); ABG BASE EXCESS 4.1 mmol/L (-2.0-3.0); ABG CARBOXYHEMOGLOBIN 0.6 % (0.0-1.5); ABG HCO3 27.8 mmol/L (22.0-26.0); ABG METHEMOGLOBIN 0.3 % (0.0-1.5); ABG OXYHEMOGLOBIN 93.2 % (94.0-100.0); ABG PCO2 42 mmHg (35-45); ABG PH 7.448 (7.35-7.450); ABG TOTAL HEMOGLOBIN 11.4 G/dL (12.0-18.0); O2 DEVICE,BLOOD GAS VENTILATOR (ROOM AIR); PEEP,BG 8 cm H2O; PO2, ARTERIAL BG 70.9 mmHg (79.0-87.0); SITE, BLOOD GAS ARTERIAL LINE; SOURCE, BLOOD GAS ARTERIAL; TEMPERATURE, FAHRENHEIT, BG 99.3 FAHREN (96.0-98.6); VT, ABG 400 ml
[2019-10-12 11:45] LABS: BAND NEUTROPHILS % (MANUAL) 7 % (0-5); EOSINOPHILS % (MANUAL) 1 % (1-6); LYMPHOCYTES % (MANUAL) 7 % (22-44); METAMYELOCYTES % 1 % (0-0); MONOCYTES % (MANUAL) 2 % (2-9); MYELOCYTES % 2 % (0-0); SEGMENTED NEUTROPHILS % 80 % (40-70)
[2019-10-12 12:00] VITALS: BP 99/51
[2019-10-12] MEDS: REMDESIVIR **INVESTIGATIONAL** 100 MG in SODIUM CHLORIDE 0.9% 230 ML IV SCH (12:45)
[2019-10-12] MEDS: ACETAMINOPHEN 325 MG TABLET PO PRN (14:39)
[2019-10-12] MEDS: HEPARIN SODIUM 25000 UNITS/D5W 250 ML IV PRN (15:43)
[2019-10-12 16:00] VITALS: BP 150/68
[2019-10-12 16:36] LABS: GLUCOMETER DEV NAME(LOC) 4E.2; GLUCOSE,POINT OF CARE 169 MG/DL (70-110)
[2019-10-12 17:47] LABS: GLUCOMETER DEV NAME(LOC) 4E.2; GLUCOSE,POINT OF CARE 170 MG/DL (70-110)
[2019-10-12 20:00] VITALS: BP 97/58
[2019-10-12] MEDS: MULTIVITAMINS WITH MINERALS, THERAPEUTIC TABLET GT SCH (20:58)
[2019-10-12 22:31] LABS: ABG A-A DIFF O2 593.3 mmHg (10-20.0); ABG BASE EXCESS 7.7 mmol/L (-2.0-3.0); ABG CARBOXYHEMOGLOBIN 0.6 % (0.0-1.5); ABG HCO3 29.4 mmol/L (22.0-26.0); ABG METHEMOGLOBIN 0.3 % (0.0-1.5); ABG OXYGEN CONTENT 13.3 mL/dL (15.0-23.0); ABG OXYHEMOGLOBIN 78.6 % (94.0-100.0); ABG PH 7.318 (7.35-7.450); PO2, ARTERIAL BG 49.2 mmHg (79.0-87.0); SOURCE, BLOOD GAS ARTERIAL; TEMPERATURE, FAHRENHEIT, BG 100.4 FAHREN (96.0-98.6)
[2019-10-12 22:32] LABS: ABG PCO2 68 mmHg (35-45)
[2019-10-12 22:33] LABS: ABG OXYGEN SATURATION 79.3 % (95.0-98.0); O2 DEVICE,BLOOD GAS VENTILATOR (ROOM AIR); PEEP,BG 10 cm H2O; SITE, BLOOD GAS ARTERIAL LINE; VT, ABG 400 ml
[2019-10-12 23:57] LABS: ABG A-A DIFF O2 592.8 mmHg (10-20.0); ABG BASE EXCESS 7.2 mmol/L (-2.0-3.0); ABG CARBOXYHEMOGLOBIN 0.7 % (0.0-1.5); ABG METHEMOGLOBIN 0.3 % (0.0-1.5); ABG OXYGEN CONTENT 14.5 mL/dL (15.0-23.0); ABG OXYGEN SATURATION 91.2 % (95.0-98.0); ABG OXYHEMOGLOBIN 90.3 % (94.0-100.0); ABG PCO2 51 mmHg (35-45); ABG PH 7.413 (7.35-7.450); ABG TOTAL HEMOGLOBIN 11.4 G/dL (12.0-18.0); PO2, ARTERIAL BG 66.4 mmHg (79.0-87.0); SOURCE, BLOOD GAS ARTERIAL; TEMPERATURE, FAHRENHEIT, BG 100.4 FAHREN (96.0-98.6)
[2019-10-12 23:59] LABS: O2 DEVICE,BLOOD GAS VENTILATOR (ROOM AIR); PEEP,BG 10 cm H2O; SITE, BLOOD GAS ARTERIAL LINE; VT, ABG 400 ml
[2019-10-13] VITALS: BP 106/63
[2019-10-13] MEDS: FentaNYL CITRATE PF 500 MCG in DEXTROSE 5%-WATER 90 ML IV PRN ×6 (00:14→22:29)
[2019-10-13] MEDS: PIPERACILLIN/TAZO 3.375 GM/D5W 50 ML IV SCH ×4 (00:23→20:01)
[2019-10-13] MEDS: DEXAMETHASONE SOD PHOS 4 MG/ML VIAL IVP SCH ×3 (00:24→16:02)
[2019-10-13] MEDS: INSULIN LISPRO 100 UNITS/ML SQ PRN ×4 (00:24→18:00)
[2019-10-13 00:32] LABS: GLUCOSE,POINT OF CARE 207 MG/DL (70-110)
[2019-10-13] MEDS ORDERED: SODIUM CHLORIDE 0.9% 100 ML ONE (00:34)
[2019-10-13] MEDS ORDERED: ATROPINE SULFATE 0.1 MG/ML 10 ML SYRINGE IVP ONE ×2 (03:32→10:51)
[2019-10-13 04:00] VITALS: BP 100/62
[2019-10-13 05:30] LABS: HEMOGLOBIN 11.2 g/dL (12.0-16.0); MEAN CORPUSCULAR HEMOGLOBIN 29.5 pg (26.0-34.0); MEAN CORPUSCULAR HGB CONC 33.9 G/dL (31.0-37.0); MEAN CORPUSCULAR VOLUME 87 fL (80-100); PLATELET COUNT (AUTO) 296 K/uL (150-450); RED BLOOD CELL COUNT(AUTO) 3.79 MIL/uL (4.00-5.20); RED CELL DISTRIBUTION WIDTH 14.1 % (11.5-14.5)
[2019-10-13 05:51] LABS: D-DIMER 4.74 mg/L FEU (0.00-0.50)
[2019-10-13 05:58] LABS: ALANINE AMINOTRANSFERASE 20 U/L (12-78); ALBUMIN 1.3 g/dL (3.4-5.0); ALKALINE PHOSPHATASE 61 U/L (46-116); ANION GAP 5 mmol/L (8-16); ASPARTATE AMINOTRANSFERASE 27 U/L (15-37); BILIRUBIN,TOTAL 0.6 mg/dL (0.1-1.0); C-REACTIVE PROTEIN QUANT 20.37 mg/dL (0.00-0.30); CALCIUM, TOTAL 7.6 mg/dL (8.8-10.5); CARBON DIOXIDE 31 mmol/L (22-29); CHLORIDE 96 mmol/L (98-107); FERRITIN 451 ng/mL (8-252); GLOMERULAR FILTR. RATE CALC > 60 mL/min (>60); GLUCOSE,RANDOM 264 mg/dL (70-110); PHOSPHORUS 3.7 mg/dL (2.5-4.9); POTASSIUM 4.2 mmol/L (3.5-5.1); SODIUM SERUM 132 mmol/L (136-145); TOTAL PROTEIN, SERUM 5.9 g/dL (6.4-8.2); UREA NITROGEN, BLOOD 28 mg/dL (7-18)
[2019-10-13 06:18] LABS: GLUCOSE,POINT OF CARE 233 MG/DL (70-110)
[2019-10-13 07:14] LABS: BAND NEUTROPHILS % (MANUAL) 6 % (0-5); LYMPHOCYTES % (MANUAL) 6 % (22-44); METAMYELOCYTES % 1 % (0-0); MONOCYTES % (MANUAL) 2 % (2-9); MYELOCYTES % 2 % (0-0); PLATELET MORPHOLOGY COMMENT LARGE PLTS PRESENT; SEGMENTED NEUTROPHILS % 83 % (40-70)
[2019-10-13] MEDS: AMINO ACIDS/PROTEIN HYDROLYS 30 ML TUBE PO SCH ×3 (07:40→16:36)
[2019-10-13] MEDS: PANTOPRAZOLE SODIUM 40 MG DR TABLET PO SCH (07:48)
[2019-10-13] MEDS: DOCUSATE SODIUM 100 MG CAPSULE PO SCH ×2 (07:48→20:02)
[2019-10-13] MEDS: CISATRACURIUM BESYLATE 50 MG in DEXTROSE 5%-WATER 245 ML IV PRN (07:48)
[2019-10-13 08:00] VITALS: BP 93/58
[2019-10-13] MEDS: PROPOFOL 1000 MG/ISO-OSM 100 ML IV PRN ×2 (10:00→16:18)
[2019-10-13 12:00] VITALS: BP 106/61
[2019-10-13 12:02] LABS: GLUCOSE,POINT OF CARE 182 MG/DL (70-110)
[2019-10-13] MEDS: NOREPINEPHRINE 4 MG/D5%-WATER 250 ML IV PRN (12:42)
[2019-10-13] MEDS: HEPARIN SODIUM 25000 UNITS/D5W 250 ML IV PRN ×2 (14:21→22:32)
[2019-10-13 16:00] VITALS: BP 102/54
[2019-10-13] MEDS: DAPTOMYCIN 450 MG in SODIUM CHLORIDE 0.9% 50 ML IV SCH (16:36)
[2019-10-13 18:09] LABS: GLUCOMETER DEV NAME(LOC) 4E.2; GLUCOSE,POINT OF CARE 170 MG/DL (70-110)
[2019-10-13 20:00] VITALS: BP 146/65
[2019-10-13] MEDS: MULTIVITAMINS WITH MINERALS, THERAPEUTIC TABLET GT SCH (20:05)
[2019-10-14] VITALS (10 sets, daily range): BP systolic 105–168; BP diastolic 53–80
[2019-10-14] MEDS ORDERED: SODIUM CHLORIDE 0.9% 250 ML IV ONE (00:47)
[2019-10-14] MEDS ORDERED: SODIUM CHLORIDE 0.9% 500 ML IV ONE (00:47)
[2019-10-14] MEDS: DEXAMETHASONE SOD PHOS 4 MG/ML VIAL IVP SCH ×3 (00:49→15:57)
[2019-10-14] MEDS: PIPERACILLIN/TAZO 3.375 GM/D5W 50 ML IV SCH ×4 (00:50→20:39)
[2019-10-14] MEDS: INSULIN LISPRO 100 UNITS/ML SQ PRN ×3 (00:51→17:24)
[2019-10-14 02:07] LABS: GLUCOMETER DEV NAME(LOC) 4E.2; GLUCOSE,POINT OF CARE 178 MG/DL (70-110)
[2019-10-14 02:40] LABS: APPEARANCE,URINE CLOUDY (CLEAR); BILIRUBIN,URINE NEGATIVE (NEGATIVE); GLUCOSE, URINE (UA) NEGATIVE (NEGATIVE); KETONES,URINE NEGATIVE (NEGATIVE); LEUKOCYTE ESTERASE ,URINE NEGATIVE (NEGATIVE); NITRATE,URINE NEGATIVE (NEGATIVE); OCCULT BLOOD,URINE NEGATIVE (NEGATIVE); PH,URINE 5.5 (5.0-8.0); PROTEIN,URINE TRACE (NEGATIVE); UROBILINOGEN,URINE 0.2 mg/dL (<=1.0)
[2019-10-14] MEDS: FentaNYL CITRATE PF 500 MCG in DEXTROSE 5%-WATER 90 ML IV PRN ×5 (03:33→20:40)
[2019-10-14 05:24] LABS: HEMATOCRIT 31.7 % (36-46); HEMOGLOBIN 10.6 g/dL (12.0-16.0); MEAN CORPUSCULAR HEMOGLOBIN 29.1 pg (26.0-34.0); MEAN CORPUSCULAR HGB CONC 33.4 G/dL (31.0-37.0); MEAN CORPUSCULAR VOLUME 87 fL (80-100); PLATELET COUNT (AUTO) 220 K/uL (150-450); RED BLOOD CELL COUNT(AUTO) 3.63 MIL/uL (4.00-5.20); RED CELL DISTRIBUTION WIDTH 14.4 % (11.5-14.5)
[2019-10-14 05:56] LABS: D-DIMER 4.33 mg/L FEU (0.00-0.50)
[2019-10-14 06:01] LABS: ALANINE AMINOTRANSFERASE 24 U/L (12-78); ALBUMIN 1.7 g/dL (3.4-5.0); ALKALINE PHOSPHATASE 59 U/L (46-116); ANION GAP 4 mmol/L (8-16); ASPARTATE AMINOTRANSFERASE 28 U/L (15-37); BILIRUBIN,TOTAL 0.6 mg/dL (0.1-1.0); C-REACTIVE PROTEIN QUANT 11.79 mg/dL (0.00-0.30); CARBON DIOXIDE 34 mmol/L (22-29); CHLORIDE 96 mmol/L (98-107); CREATININE 0.66 mg/dL (0.60-1.30); FERRITIN 388 ng/mL (8-252); GLOMERULAR FILTR. RATE CALC > 60 mL/min (>60); GLUCOSE,RANDOM 146 mg/dL (70-110); PHOSPHORUS 2.6 mg/dL (2.5-4.9); POTASSIUM 4.4 mmol/L (3.5-5.1); SODIUM SERUM 134 mmol/L (136-145); TOTAL PROTEIN, SERUM 6.4 g/dL (6.4-8.2); UREA NITROGEN, BLOOD 28 mg/dL (7-18)
[2019-10-14 06:06] LABS: QUANTIFERON+, Nil Value 0.02 IU/mL; QUANTIFERON+,Mitogen Value 0.02 IU/mL; QUANTIFERON+,TB1 Antigen Value 0.02 IU/mL; QUANTIFERON, TB GOLD PLUS Indeterminate (Negative)
[2019-10-14 06:56] LABS: BAND NEUTROPHILS % (MANUAL) 4 % (0-5); LYMPHOCYTES % (MANUAL) 5 % (22-44); METAMYELOCYTES % 2 % (0-0); MONOCYTES % (MANUAL) 4 % (2-9); MYELOCYTES % 2 % (0-0); SEGMENTED NEUTROPHILS % 83 % (40-70)
[2019-10-14 07:32] LABS: GLUCOMETER DEV NAME(LOC) 4E.2; GLUCOSE,POINT OF CARE 150 MG/DL (70-110)
[2019-10-14] MEDS: DOCUSATE SODIUM 100 MG CAPSULE PO SCH ×2 (07:34→20:39)
[2019-10-14] MEDS: PANTOPRAZOLE SODIUM 40 MG DR TABLET PO SCH (07:35)
[2019-10-14] MEDS: AMINO ACIDS/PROTEIN HYDROLYS 30 ML TUBE PO SCH ×3 (07:35→17:11)
[2019-10-14] MEDS: HEPARIN SODIUM 25000 UNITS/D5W 250 ML IV PRN (11:56)
[2019-10-14] MEDS: DAPTOMYCIN 450 MG in SODIUM CHLORIDE 0.9% 50 ML IV SCH (17:12)
[2019-10-14 17:50] LABS: GLUCOMETER DEV NAME(LOC) 4E.2; GLUCOSE,POINT OF CARE 175 MG/DL (70-110)
[2019-10-14] MEDS: MULTIVITAMINS WITH MINERALS, THERAPEUTIC TABLET GT SCH (20:39)
[2019-10-15] VITALS (8 sets, daily range): BP systolic 122–158; BP diastolic 60–70
[2019-10-15] MEDS: PIPERACILLIN/TAZO 3.375 GM/D5W 50 ML IV SCH ×4 (01:34→20:17)
[2019-10-15] MEDS: DEXAMETHASONE SOD PHOS 4 MG/ML VIAL IVP SCH ×4 (01:34→23:42)
[2019-10-15] MEDS: INSULIN LISPRO 100 UNITS/ML SQ PRN ×4 (01:35→23:43)
[2019-10-15 05:03] LABS: GLUCOSE,POINT OF CARE 155 MG/DL (70-110)
[2019-10-15 05:03] LABS: GLUCOSE,POINT OF CARE 191 MG/DL (70-110)
[2019-10-15] MEDS: FentaNYL CITRATE PF 500 MCG in DEXTROSE 5%-WATER 90 ML IV PRN ×2 (05:33→23:00)
[2019-10-15 06:34] LABS: D-DIMER 2.45 mg/L FEU (0.00-0.50)
[2019-10-15 06:36] LABS: ALANINE AMINOTRANSFERASE 23 U/L (12-78); ALBUMIN 1.8 g/dL (3.4-5.0); ALKALINE PHOSPHATASE 55 U/L (46-116); ANION GAP 4 mmol/L (8-16); ASPARTATE AMINOTRANSFERASE 27 U/L (15-37); BILIRUBIN,TOTAL 0.6 mg/dL (0.1-1.0); C-REACTIVE PROTEIN QUANT 7.48 mg/dL (0.00-0.30); CALCIUM, TOTAL 8.4 mg/dL (8.8-10.5); CARBON DIOXIDE 33 mmol/L (22-29); CHLORIDE 96 mmol/L (98-107); CREATINE KINASE, TOTAL ONLY 285 U/L (26-192); FERRITIN 416 ng/mL (8-252); GLOMERULAR FILTR. RATE CALC > 60 mL/min (>60); GLUCOSE,RANDOM 201 mg/dL (70-110); PHOSPHORUS 2.9 mg/dL (2.5-4.9); POTASSIUM 4.4 mmol/L (3.5-5.1); SODIUM SERUM 133 mmol/L (136-145); TOTAL PROTEIN, SERUM 6.5 g/dL (6.4-8.2)
[2019-10-15 06:59] LABS: GLUCOSE,POINT OF CARE 199 MG/DL (70-110)
[2019-10-15 07:03] LABS: UREA NITROGEN, BLOOD 34 mg/dL (7-18)
[2019-10-15] MEDS: DOCUSATE SODIUM 100 MG CAPSULE PO SCH ×2 (08:04→20:17)
[2019-10-15] MEDS: PANTOPRAZOLE SODIUM 40 MG DR TABLET PO SCH (08:04)
[2019-10-15] MEDS: AMINO ACIDS/PROTEIN HYDROLYS 30 ML TUBE PO SCH ×3 (08:04→15:57)
[2019-10-15 12:29] LABS: GLUCOSE,POINT OF CARE 158 MG/DL (70-110)
[2019-10-15] MEDS: DOPamine HCL 400 MG/D5%-WATER 250 ML IV PRN ×2 (15:18→23:46)
[2019-10-15 16:03] LABS: ABG A-A DIFF O2 202.5 mmHg (10-20.0); ABG BASE EXCESS 4.5 mmol/L (-2.0-3.0); ABG HCO3 28.2 mmol/L (22.0-26.0); ABG METHEMOGLOBIN 0.2 % (0.0-1.5); ABG OXYGEN CONTENT 15.4 mL/dL (15.0-23.0); ABG OXYGEN SATURATION 95.2 % (95.0-98.0); ABG PCO2 40 mmHg (35-45); ABG TOTAL HEMOGLOBIN 11.5 G/dL (12.0-18.0); PO2, ARTERIAL BG 74.3 mmHg (79.0-87.0); SITE, BLOOD GAS LFT RADIAL; SOURCE, BLOOD GAS ARTERIAL; TEMPERATURE, FAHRENHEIT, BG 97.2 FAHREN (96.0-98.6)
[2019-10-15 16:04] LABS: O2 DEVICE,BLOOD GAS VENTILATOR (ROOM AIR); PEEP,BG 10 cm H2O; VT, ABG 400 ml
[2019-10-15] MEDS: HEPARIN SODIUM 25000 UNITS/D5W 250 ML IV PRN (17:03)
[2019-10-15] MEDS: MULTIVITAMINS WITH MINERALS, THERAPEUTIC TABLET GT SCH (20:17)
[2019-10-15 21:41] LABS: GLUCOMETER DEV NAME(LOC) 4E.2; GLUCOSE,POINT OF CARE 146 MG/DL (70-110)
[2019-10-15] MEDS ORDERED: SODIUM CHLORIDE 0.9% 250 ML IV ONE (23:38)
[2019-10-16] VITALS: BP 150/70
[2019-10-16 00:32] LABS: GLUCOSE,POINT OF CARE 178 MG/DL (70-110)
[2019-10-16] MEDS: PIPERACILLIN/TAZO 3.375 GM/D5W 50 ML IV SCH ×4 (03:15→20:14)
[2019-10-16] MEDS: FentaNYL CITRATE PF 500 MCG in DEXTROSE 5%-WATER 90 ML IV PRN ×3 (03:16→20:50)
[2019-10-16 04:00] VITALS: BP 146/70
[2019-10-16] MEDS: INSULIN LISPRO 100 UNITS/ML SQ PRN ×4 (05:47→23:31)
[2019-10-16 06:40] LABS: ALANINE AMINOTRANSFERASE 38 U/L (12-78); ALBUMIN 1.9 g/dL (3.4-5.0); ALKALINE PHOSPHATASE 64 U/L (46-116); ANION GAP 6 mmol/L (8-16); ASPARTATE AMINOTRANSFERASE 30 U/L (15-37); BILIRUBIN,TOTAL 1.1 mg/dL (0.1-1.0); C-REACTIVE PROTEIN QUANT 4.83 mg/dL (0.00-0.30); CARBON DIOXIDE 29 mmol/L (22-29); CHLORIDE 96 mmol/L (98-107); CREATININE 0.57 mg/dL (0.60-1.30); FERRITIN 483 ng/mL (8-252); GLOMERULAR FILTR. RATE CALC > 60 mL/min (>60); GLUCOSE,RANDOM 202 mg/dL (70-110); POTASSIUM 4.1 mmol/L (3.5-5.1); SODIUM SERUM 131 mmol/L (136-145); TOTAL PROTEIN, SERUM 6.9 g/dL (6.4-8.2); UREA NITROGEN, BLOOD 27 mg/dL (7-18)
[2019-10-16 06:44] LABS: GLUCOMETER DEV NAME(LOC) 4E.2; GLUCOSE,POINT OF CARE 122 MG/DL (70-110)
[2019-10-16 06:54] LABS: D-DIMER 2.28 mg/L FEU (0.00-0.50)
[2019-10-16 07:59] LABS: HEMATOCRIT 32.7 % (36-46); HEMOGLOBIN 11.1 g/dL (12.0-16.0); MEAN CORPUSCULAR HEMOGLOBIN 29.6 pg (26.0-34.0); MEAN CORPUSCULAR HGB CONC 34.1 G/dL (31.0-37.0); MEAN CORPUSCULAR VOLUME 87 fL (80-100); PLATELET COUNT (AUTO) 409 K/uL (150-450); RED BLOOD CELL COUNT(AUTO) 3.77 MIL/uL (4.00-5.20); RED CELL DISTRIBUTION WIDTH 14.5 % (11.5-14.5)
[2019-10-16 08:00] VITALS: BP 148/68
[2019-10-16] MEDS: PANTOPRAZOLE SODIUM 40 MG DR TABLET PO SCH (08:34)
[2019-10-16] MEDS: DEXAMETHASONE SOD PHOS 4 MG/ML VIAL IVP SCH ×3 (08:34→23:31)
[2019-10-16] MEDS: DOCUSATE SODIUM 100 MG CAPSULE PO SCH ×2 (08:34→20:14)
[2019-10-16] MEDS: AMINO ACIDS/PROTEIN HYDROLYS 30 ML TUBE PO SCH (08:34)
[2019-10-16] MEDS: DOPamine HCL 400 MG/D5%-WATER 250 ML IV PRN ×2 (09:43→23:30)
[2019-10-16 10:07] LABS: BAND NEUTROPHILS % (MANUAL) 6 % (0-5); LYMPHOCYTES % (MANUAL) 14 % (22-44); MONOCYTES % (MANUAL) 2 % (2-9); SEGMENTED NEUTROPHILS % 78 % (40-70)
[2019-10-16 12:00] VITALS: BP 134/62
[2019-10-16 15:22] LABS: GLUCOMETER DEV NAME(LOC) 4E.2; GLUCOSE,POINT OF CARE 162 MG/DL (70-110)
[2019-10-16] MEDS: HEPARIN SODIUM 25000 UNITS/D5W 250 ML IV PRN (15:40)
[2019-10-16 16:00] VITALS: BP 108/57
[2019-10-16 17:42] LABS: ABG A-A DIFF O2 223.8 mmHg (10-20.0); ABG BASE EXCESS 1.8 mmol/L (-2.0-3.0); ABG CARBOXYHEMOGLOBIN 0.5 % (0.0-1.5); ABG HCO3 26.3 mmol/L (22.0-26.0); ABG METHEMOGLOBIN 0.3 % (0.0-1.5); ABG OXYGEN CONTENT 14.8 mL/dL (15.0-23.0); ABG OXYGEN SATURATION 92.1 % (95.0-98.0); ABG OXYHEMOGLOBIN 91.4 % (94.0-100.0); ABG PCO2 32 mmHg (35-45); ABG PH 7.508 (7.35-7.450); ABG TOTAL HEMOGLOBIN 11.5 G/dL (12.0-18.0); PO2, ARTERIAL BG 60.7 mmHg (79.0-87.0); SOURCE, BLOOD GAS ARTERIAL; TEMPERATURE, FAHRENHEIT, BG 98.4 FAHREN (96.0-98.6)
[2019-10-16 18:05] LABS: CPAP, BG 5 cm H2O; O2 DEVICE,BLOOD GAS VENTILATOR (ROOM AIR); PRESSURE SUPPORT, BG 8 cm H2O; SITE, BLOOD GAS RT RADIAL; VENT MODE, BG CPAP (ROOM AIR)
[2019-10-16 18:25] LABS: GLUCOMETER DEV NAME(LOC) 4E.2; GLUCOSE,POINT OF CARE 179 MG/DL (70-110)
[2019-10-16 20:00] VITALS: BP 110/55
[2019-10-16] MEDS: MULTIVITAMINS WITH MINERALS, THERAPEUTIC TABLET GT SCH (20:14)
[2019-10-16] MEDS: HEPARIN SODIUM,PORCINE 5,000 UNITS/ML VIAL IVP PRN (23:53)
[2019-10-17] VITALS: BP 128/57
[2019-10-17] MEDS: PIPERACILLIN/TAZO 3.375 GM/D5W 50 ML IV SCH ×4 (02:09→20:05)
[2019-10-17] MEDS ORDERED: SODIUM CHLORIDE 0.9% 250 ML IV ONE (02:18)
[2019-10-17 04:00] VITALS: BP 123/60
[2019-10-17 06:08] LABS: GLUCOSE,POINT OF CARE 214 MG/DL (70-110)
[2019-10-17 06:09] LABS: GLUCOSE,POINT OF CARE 226 MG/DL (70-110)
[2019-10-17] MEDS: FentaNYL CITRATE PF 500 MCG in DEXTROSE 5%-WATER 90 ML IV PRN (06:16)
[2019-10-17] MEDS: INSULIN LISPRO 100 UNITS/ML SQ PRN ×2 (06:18→11:55)
[2019-10-17] MEDS: PANTOPRAZOLE SODIUM 40 MG DR TABLET PO SCH (07:44)
[2019-10-17] MEDS: DOCUSATE SODIUM 100 MG CAPSULE PO SCH ×2 (07:44→19:46)
[2019-10-17] MEDS: DEXAMETHASONE SOD PHOS 4 MG/ML VIAL IVP SCH ×2 (07:44→16:52)
[2019-10-17] MEDS: PROPOFOL 1000 MG/ISO-OSM 100 ML IV PRN (07:45)
[2019-10-17 08:00] VITALS: BP 104/51
[2019-10-17 08:57] LABS: HEMATOCRIT 30.9 % (36-46); HEMOGLOBIN 10.5 g/dL (12.0-16.0); MEAN CORPUSCULAR HEMOGLOBIN 29.9 pg (26.0-34.0); MEAN CORPUSCULAR HGB CONC 34.1 G/dL (31.0-37.0); MEAN CORPUSCULAR VOLUME 88 fL (80-100); PLATELET COUNT (AUTO) 390 K/uL (150-450); RED BLOOD CELL COUNT(AUTO) 3.53 MIL/uL (4.00-5.20); RED CELL DISTRIBUTION WIDTH 14.5 % (11.5-14.5)
[2019-10-17 09:00] LABS: BAND NEUTROPHILS % (MANUAL) 0 % (0-5)
[2019-10-17 09:15] LABS: D-DIMER 3.91 mg/L FEU (0.00-0.50)
[2019-10-17 09:18] LABS: ALANINE AMINOTRANSFERASE 73 U/L (12-78); ALBUMIN 1.7 g/dL (3.4-5.0); ALKALINE PHOSPHATASE 61 U/L (46-116); ANION GAP 7 mmol/L (8-16); ASPARTATE AMINOTRANSFERASE 41 U/L (15-37); BILIRUBIN,TOTAL 0.6 mg/dL (0.1-1.0); C-REACTIVE PROTEIN QUANT 2.27 mg/dL (0.00-0.30); CALCIUM, TOTAL 8.2 mg/dL (8.8-10.5); CARBON DIOXIDE 27 mmol/L (22-29); CHLORIDE 100 mmol/L (98-107); CREATININE 0.52 mg/dL (0.60-1.30); FERRITIN 593 ng/mL (8-252); GLOMERULAR FILTR. RATE CALC > 60 mL/min (>60); GLUCOSE,RANDOM 243 mg/dL (70-110); PHOSPHORUS 2.4 mg/dL (2.5-4.9); POTASSIUM 3.7 mmol/L (3.5-5.1); SODIUM SERUM 134 mmol/L (136-145); TOTAL PROTEIN, SERUM 6.4 g/dL (6.4-8.2); UREA NITROGEN, BLOOD 28 mg/dL (7-18)
[2019-10-17 09:51] LABS: LYMPHOCYTES % (MANUAL) 7 % (22-44); MONOCYTES % (MANUAL) 5 % (2-9); REACTIVE LYMPHOCYTES 1 % (0-0); SEGMENTED NEUTROPHILS % 87 % (40-70)
[2019-10-17 12:00] VITALS: BP 111/61
[2019-10-17 12:26] LABS: GLUCOMETER DEV NAME(LOC) 4E.2; GLUCOSE,POINT OF CARE 172 MG/DL (70-110)
[2019-10-17 12:28] LABS: ABG A-A DIFF O2 193.8 mmHg (10-20.0); ABG BASE EXCESS 1.6 mmol/L (-2.0-3.0); ABG CARBOXYHEMOGLOBIN 0.7 % (0.0-1.5); ABG HCO3 26.1 mmol/L (22.0-26.0); ABG METHEMOGLOBIN 0.3 % (0.0-1.5); ABG OXYGEN CONTENT 15.9 mL/dL (15.0-23.0); ABG OXYGEN SATURATION 96.9 % (95.0-98.0); ABG OXYHEMOGLOBIN 95.9 % (94.0-100.0); ABG PCO2 35 mmHg (35-45); ABG PH 7.475 (7.35-7.450); ABG TOTAL HEMOGLOBIN 11.7 G/dL (12.0-18.0); O2 DEVICE,BLOOD GAS VENTILATOR (ROOM AIR); SITE, BLOOD GAS LFT RADIAL; SOURCE, BLOOD GAS ARTERIAL; TEMPERATURE, FAHRENHEIT, BG 98.9 FAHREN (96.0-98.6); VENT MODE, BG CPAP (ROOM AIR)
[2019-10-17 12:29] LABS: CPAP, BG 5 cm H2O; PRESSURE SUPPORT, BG 8 cm H2O
[2019-10-17 16:00] VITALS: BP 110/63
[2019-10-17 18:27] LABS: GLUCOMETER DEV NAME(LOC) 4E.2; GLUCOSE,POINT OF CARE 110 MG/DL (70-110)
[2019-10-17] MEDS: HEPARIN SODIUM 25000 UNITS/D5W 250 ML IV PRN (18:29)
[2019-10-17] MEDS: MULTIVITAMINS WITH MINERALS, THERAPEUTIC TABLET GT SCH (19:46)
[2019-10-17 20:00] VITALS: BP 124/63
[2019-10-18] VITALS: BP 129/73
[2019-10-18 00:12] LABS: GLUCOSE,POINT OF CARE 128 MG/DL (70-110)
[2019-10-18] MEDS: DEXAMETHASONE SOD PHOS 4 MG/ML VIAL IVP SCH ×4 (00:35→23:49)
[2019-10-18] MEDS: PIPERACILLIN/TAZO 3.375 GM/D5W 50 ML IV SCH ×4 (01:57→20:38)
[2019-10-18 04:24] VITALS: BP 109/62
[2019-10-18 06:55] LABS: BASOPHILS % (AUTO) 0.3 % (0.0-2.0); EOSINOPHILS % (AUTO) 0.2 % (1.0-6.0); HEMATOCRIT 32.9 % (36-46); HEMOGLOBIN 11.1 g/dL (12.0-16.0); LYMPHOCYTES # (AUTO) 1.2 K/uL (1.0-4.8); LYMPHOCYTES % (AUTO) 7.6 % (22.0-44.0); MEAN CORPUSCULAR HEMOGLOBIN 29.3 pg (26.0-34.0); MEAN CORPUSCULAR HGB CONC 33.6 G/dL (31.0-37.0); MEAN CORPUSCULAR VOLUME 87 fL (80-100); MONOCYTES # (AUTO) 0.9 K/uL (0.1-1.0); MONOCYTES % (AUTO) 5.9 % (2.0-9.0); NEUTROPHILS # (AUTO) 13.6 K/uL (1.8-7.7); PLATELET COUNT (AUTO) 432 K/uL (150-450); RED BLOOD CELL COUNT(AUTO) 3.77 MIL/uL (4.00-5.20)
[2019-10-18 06:55] LABS: GLUCOSE,POINT OF CARE 97 MG/DL (70-110)
[2019-10-18 07:29] LABS: ALANINE AMINOTRANSFERASE 104 U/L (12-78); ALKALINE PHOSPHATASE 62 U/L (46-116); ANION GAP 9 mmol/L (8-16); ASPARTATE AMINOTRANSFERASE 67 U/L (15-37); BILIRUBIN,TOTAL 0.9 mg/dL (0.1-1.0); C-REACTIVE PROTEIN QUANT 3.36 mg/dL (0.00-0.30); CALCIUM, TOTAL 8.4 mg/dL (8.8-10.5); CARBON DIOXIDE 25 mmol/L (22-29); CHLORIDE 104 mmol/L (98-107); FERRITIN 718 ng/mL (8-252); GLOMERULAR FILTR. RATE CALC > 60 mL/min (>60); GLUCOSE,RANDOM 92 mg/dL (70-110); POTASSIUM 3.6 mmol/L (3.5-5.1); SODIUM SERUM 138 mmol/L (136-145); TOTAL PROTEIN, SERUM 6.8 g/dL (6.4-8.2); UREA NITROGEN, BLOOD 28 mg/dL (7-18)
[2019-10-18 08:00] VITALS: BP 107/62
[2019-10-18] MEDS: DOCUSATE SODIUM 100 MG CAPSULE PO SCH ×2 (09:00→20:38)
[2019-10-18] MEDS: MULTIVITAMINS WITH MINERALS, THERAPEUTIC TABLET GT SCH (09:00)
[2019-10-18] MEDS: PANTOPRAZOLE SODIUM 40 MG DR TABLET PO SCH (09:00)
[2019-10-18 12:00] VITALS: BP 113/56
[2019-10-18 13:28] LABS: GLUCOSE,POINT OF CARE 129 MG/DL (70-110)
[2019-10-18] MEDS: INSULIN LISPRO 100 UNITS/ML SQ PRN ×2 (13:50→23:10)
[2019-10-18 16:00] VITALS: BP 120/70
[2019-10-18 18:06] LABS: GLUCOMETER DEV NAME(LOC) 4E.2; GLUCOSE,POINT OF CARE 122 MG/DL (70-110)
[2019-10-18 20:00] VITALS: BP 123/73
[2019-10-18] MEDS ORDERED: SODIUM CHLORIDE 0.9% 250 ML IV ONE (20:39)
[2019-10-18] MEDS: HEPARIN SODIUM 25000 UNITS/D5W 250 ML IV PRN (22:00)
[2019-10-19] VITALS (8 sets, daily range): BP systolic 104–126; BP diastolic 65–75
[2019-10-19] MEDS: PIPERACILLIN/TAZO 3.375 GM/D5W 50 ML IV SCH ×3 (02:00→14:08)
[2019-10-19] MEDS ORDERED: SODIUM CHLORIDE 0.9% 500 ML IV ONE (02:34)
[2019-10-19 04:07] LABS: GLUCOMETER DEV NAME(LOC) 4E.2; GLUCOSE,POINT OF CARE 140 MG/DL (70-110)
[2019-10-19] MEDS: INSULIN LISPRO 100 UNITS/ML SQ PRN ×3 (05:36→20:57)
[2019-10-19 06:36] LABS: BASOPHILS % (AUTO) 0.8 % (0.0-2.0); EOSINOPHILS % (AUTO) 0 % (1.0-6.0); LYMPHOCYTES # (AUTO) 0.6 K/uL (1.0-4.8); LYMPHOCYTES % (AUTO) 4.9 % (22.0-44.0); MEAN CORPUSCULAR HEMOGLOBIN 29.5 pg (26.0-34.0); MEAN CORPUSCULAR HGB CONC 33.4 G/dL (31.0-37.0); MEAN CORPUSCULAR VOLUME 88 fL (80-100); MONOCYTES # (AUTO) 0.4 K/uL (0.1-1.0); NEUTROPHILS # (AUTO) 12.1 K/uL (1.8-7.7); PLATELET COUNT (AUTO) 474 K/uL (150-450); RED BLOOD CELL COUNT(AUTO) 3.73 MIL/uL (4.00-5.20); RED CELL DISTRIBUTION WIDTH 15.2 % (11.5-14.5)
[2019-10-19 06:44] LABS: GLUCOMETER DEV NAME(LOC) 4E.2; GLUCOSE,POINT OF CARE 130 MG/DL (70-110)
[2019-10-19 06:47] LABS: NEUTROPHILS % (AUTO) 91.3 % (40.0-70.0)
[2019-10-19 07:16] LABS: ALANINE AMINOTRANSFERASE 148 U/L (12-78); ALBUMIN 2.1 g/dL (3.4-5.0); ALKALINE PHOSPHATASE 60 U/L (46-116); ANION GAP 12 mmol/L (8-16); ASPARTATE AMINOTRANSFERASE 81 U/L (15-37); C-REACTIVE PROTEIN QUANT 11.05 mg/dL (0.00-0.30); CALCIUM, TOTAL 8.5 mg/dL (8.8-10.5); CARBON DIOXIDE 22 mmol/L (22-29); CHLORIDE 105 mmol/L (98-107); FERRITIN 807 ng/mL (8-252); GLOMERULAR FILTR. RATE CALC > 60 mL/min (>60); GLUCOSE,RANDOM 121 mg/dL (70-110); POTASSIUM 3.8 mmol/L (3.5-5.1); SODIUM SERUM 139 mmol/L (136-145); TOTAL PROTEIN, SERUM 7.1 g/dL (6.4-8.2); UREA NITROGEN, BLOOD 34 mg/dL (7-18)
[2019-10-19] MEDS: DEXAMETHASONE SOD PHOS 4 MG/ML VIAL IVP SCH ×2 (08:28→16:27)
[2019-10-19] MEDS: DOCUSATE SODIUM 100 MG CAPSULE PO SCH ×2 (08:28→21:01)
[2019-10-19] MEDS: PANTOPRAZOLE SODIUM 40 MG DR TABLET PO SCH (08:29)
[2019-10-19 12:02] LABS: GLUCOMETER DEV NAME(LOC) 4E.2; GLUCOSE,POINT OF CARE 151 MG/DL (70-110)
[2019-10-19] MEDS: MULTIVITAMINS WITH MINERALS, THERAPEUTIC TABLET GT SCH (21:01)
[2019-10-19 21:16] LABS: GLUCOMETER DEV NAME(LOC) 4E.2; GLUCOSE,POINT OF CARE 118 MG/DL (70-110)
[2019-10-20 00:46] LABS: GLUCOMETER DEV NAME(LOC) 5N.1; GLUCOSE,POINT OF CARE 217 MG/DL (70-110)
[2019-10-20] MEDS: PIPERACILLIN/TAZO 3.375 GM/D5W 50 ML IV SCH ×5 (01:34→20:17)
[2019-10-20] MEDS: DEXAMETHASONE SOD PHOS 4 MG/ML VIAL IVP SCH ×3 (01:34→15:15)
[2019-10-20 04:17] VITALS: BP 119/73
[2019-10-20] MEDS: HEPARIN SODIUM 25000 UNITS/D5W 250 ML IV PRN (05:05)
[2019-10-20 07:29] VITALS: BP 132/66
[2019-10-20 08:08] LABS: GLUCOMETER DEV NAME(LOC) 5N.1; GLUCOSE,POINT OF CARE 149 MG/DL (70-110)
[2019-10-20 08:17] LABS: ALANINE AMINOTRANSFERASE 136 U/L (12-78); ALBUMIN 1.8 g/dL (3.4-5.0); ALKALINE PHOSPHATASE 50 U/L (46-116); ANION GAP 11 mmol/L (8-16); ASPARTATE AMINOTRANSFERASE 55 U/L (15-37); BILIRUBIN,TOTAL 0.6 mg/dL (0.1-1.0); C-REACTIVE PROTEIN QUANT 4.21 mg/dL (0.00-0.30); CALCIUM, TOTAL 7.4 mg/dL (8.8-10.5); CARBON DIOXIDE 21 mmol/L (22-29); CHLORIDE 110 mmol/L (98-107); CREATININE 0.58 mg/dL (0.60-1.30); FERRITIN 658 ng/mL (8-252); GLOMERULAR FILTR. RATE CALC > 60 mL/min (>60); GLUCOSE,RANDOM 127 mg/dL (70-110); POTASSIUM 3.3 mmol/L (3.5-5.1); SODIUM SERUM 142 mmol/L (136-145); UREA NITROGEN, BLOOD 36 mg/dL (7-18)
[2019-10-20] MEDS: POTASSIUM CHLORIDE 20 MEQ ER TABLET PO PRN (08:31)
[2019-10-20] MEDS: PANTOPRAZOLE SODIUM 40 MG DR TABLET PO SCH (08:33)
[2019-10-20] MEDS: DOCUSATE SODIUM 100 MG CAPSULE PO SCH ×2 (08:33→20:17)
[2019-10-20 11:50] VITALS: BP 115/74
[2019-10-20] MEDS: HEPARIN SODIUM,PORCINE 5,000 UNITS/ML VIAL IVP PRN (11:54)
[2019-10-20] MEDS: INSULIN LISPRO 100 UNITS/ML SQ PRN ×3 (12:09→21:12)
[2019-10-20 15:06] VITALS: BP 107/57
[2019-10-20 19:52] VITALS: BP 103/71
[2019-10-20] MEDS: MULTIVITAMINS WITH MINERALS, THERAPEUTIC TABLET GT SCH (20:17)
[2019-10-20 21:51] LABS: GLUCOMETER DEV NAME(LOC) 5S.2A; GLUCOSE,POINT OF CARE 191 MG/DL (70-110)
[2019-10-20 21:51] LABS: GLUCOMETER DEV NAME(LOC) 5N.3; GLUCOSE,POINT OF CARE 174 MG/DL (70-110)
[2019-10-20 21:52] LABS: GLUCOMETER DEV NAME(LOC) 5S.2A; GLUCOSE,POINT OF CARE 214 MG/DL (70-110)
[2019-10-20 23:36] VITALS: BP 127/74
[2019-10-21] MEDS: DEXAMETHASONE SOD PHOS 4 MG/ML VIAL IVP SCH ×3 (00:26→17:19)
[2019-10-21] MEDS: PIPERACILLIN/TAZO 3.375 GM/D5W 50 ML IV SCH ×2 (02:55→08:05)
[2019-10-21] MEDS: HEPARIN SODIUM,PORCINE 5,000 UNITS/ML VIAL IVP PRN (03:51)
[2019-10-21] MEDS: HEPARIN SODIUM 25000 UNITS/D5W 250 ML IV PRN (03:52)
[2019-10-21 05:12] VITALS: BP 126/73
[2019-10-21] MEDS: INSULIN LISPRO 100 UNITS/ML SQ PRN ×4 (06:15→21:02)
[2019-10-21 07:02] LABS: BASOPHILS % (AUTO) 0.4 % (0.0-2.0); EOSINOPHILS % (AUTO) 0.1 % (1.0-6.0); HEMATOCRIT 33.9 % (36-46); HEMOGLOBIN 11.2 g/dL (12.0-16.0); LYMPHOCYTES # (AUTO) 0.8 K/uL (1.0-4.8); LYMPHOCYTES % (AUTO) 5.5 % (22.0-44.0); MEAN CORPUSCULAR HEMOGLOBIN 29.5 pg (26.0-34.0); MEAN CORPUSCULAR HGB CONC 33.2 G/dL (31.0-37.0); MEAN CORPUSCULAR VOLUME 89 fL (80-100); MONOCYTES # (AUTO) 0.6 K/uL (0.1-1.0); MONOCYTES % (AUTO) 4.1 % (2.0-9.0); NEUTROPHILS # (AUTO) 13.2 K/uL (1.8-7.7); PLATELET COUNT (AUTO) 528 K/uL (150-450); RED BLOOD CELL COUNT(AUTO) 3.82 MIL/uL (4.00-5.20); RED CELL DISTRIBUTION WIDTH 15.1 % (11.5-14.5)
[2019-10-21 07:10] LABS: NEUTROPHILS % (AUTO) 89.9 % (40.0-70.0)
[2019-10-21 07:41] VITALS: BP 111/73
[2019-10-21 07:47] LABS: GLUCOMETER DEV NAME(LOC) 5N.3; GLUCOSE,POINT OF CARE 150 MG/DL (70-110)
[2019-10-21 07:54] LABS: ALANINE AMINOTRANSFERASE 147 U/L (12-78); ALBUMIN 2.3 g/dL (3.4-5.0); ALKALINE PHOSPHATASE 55 U/L (46-116); ANION GAP 13 mmol/L (8-16); ASPARTATE AMINOTRANSFERASE 41 U/L (15-37); BILIRUBIN,TOTAL 0.7 mg/dL (0.1-1.0); C-REACTIVE PROTEIN QUANT 2.02 mg/dL (0.00-0.30); CALCIUM, TOTAL 8.6 mg/dL (8.8-10.5); CARBON DIOXIDE 20 mmol/L (22-29); CHLORIDE 107 mmol/L (98-107); CREATININE 0.74 mg/dL (0.60-1.30); FERRITIN 649 ng/mL (8-252); GLOMERULAR FILTR. RATE CALC > 60 mL/min (>60); GLUCOSE,RANDOM 147 mg/dL (70-110); POTASSIUM 3.7 mmol/L (3.5-5.1); SODIUM SERUM 140 mmol/L (136-145); TOTAL PROTEIN, SERUM 7.1 g/dL (6.4-8.2); UREA NITROGEN, BLOOD 44 mg/dL (7-18)
[2019-10-21] MEDS: PANTOPRAZOLE SODIUM 40 MG DR TABLET PO SCH (08:05)
[2019-10-21] MEDS: DOCUSATE SODIUM 100 MG CAPSULE PO SCH ×2 (08:05→20:57)
[2019-10-21 11:26] VITALS: BP 113/65
[2019-10-21 16:53] VITALS: BP 117/65
[2019-10-21 16:57] LABS: GLUCOMETER DEV NAME(LOC) 5N.3; GLUCOSE,POINT OF CARE 152 MG/DL (70-110)
[2019-10-21 17:58] LABS: GLUCOMETER DEV NAME(LOC) 5S.2A; GLUCOSE,POINT OF CARE 168 MG/DL (70-110)
[2019-10-21 19:45] VITALS: BP 99/72
[2019-10-21] MEDS: MULTIVITAMINS WITH MINERALS, THERAPEUTIC TABLET GT SCH (20:57)
[2019-10-21 23:52] VITALS: BP 127/77
[2019-10-22] MEDS: DEXAMETHASONE SOD PHOS 4 MG/ML VIAL IVP SCH ×4 (01:04→23:31)
[2019-10-22 04:31] VITALS: BP 120/77
[2019-10-22] MEDS: HEPARIN SODIUM 25000 UNITS/D5W 250 ML IV PRN (04:44)
[2019-10-22 06:55] LABS: BASOPHILS % (AUTO) 0.2 % (0.0-2.0); EOSINOPHILS % (AUTO) 0 % (1.0-6.0); HEMATOCRIT 34.2 % (36-46); HEMOGLOBIN 11.5 g/dL (12.0-16.0); LYMPHOCYTES # (AUTO) 0.8 K/uL (1.0-4.8); LYMPHOCYTES % (AUTO) 5.7 % (22.0-44.0); MEAN CORPUSCULAR HGB CONC 33.7 G/dL (31.0-37.0); MEAN CORPUSCULAR VOLUME 89 fL (80-100); MONOCYTES # (AUTO) 0.6 K/uL (0.1-1.0); MONOCYTES % (AUTO) 4.6 % (2.0-9.0); NEUTROPHILS # (AUTO) 12.8 K/uL (1.8-7.7); PLATELET COUNT (AUTO) 506 K/uL (150-450); RED BLOOD CELL COUNT(AUTO) 3.85 MIL/uL (4.00-5.20); RED CELL DISTRIBUTION WIDTH 15.3 % (11.5-14.5)
[2019-10-22 07:23] LABS: GLUCOMETER DEV NAME(LOC) 5S.2A; GLUCOSE,POINT OF CARE 135 MG/DL (70-110)
[2019-10-22 07:23] LABS: GLUCOMETER DEV NAME(LOC) 5S.2A; GLUCOSE,POINT OF CARE 172 MG/DL (70-110)
[2019-10-22 07:28] LABS: D-DIMER 3.18 mg/L FEU (0.00-0.50)
[2019-10-22 07:34] LABS: ALANINE AMINOTRANSFERASE 137 U/L (12-78); ALBUMIN 2.4 g/dL (3.4-5.0); ALKALINE PHOSPHATASE 57 U/L (46-116); ANION GAP 11 mmol/L (8-16); ASPARTATE AMINOTRANSFERASE 35 U/L (15-37); BILIRUBIN,TOTAL 0.5 mg/dL (0.1-1.0); C-REACTIVE PROTEIN QUANT 0.82 mg/dL (0.00-0.30); CALCIUM, TOTAL 8.7 mg/dL (8.8-10.5); CARBON DIOXIDE 22 mmol/L (22-29); CHLORIDE 106 mmol/L (98-107); CREATININE 0.58 mg/dL (0.60-1.30); FERRITIN 553 ng/mL (8-252); GLOMERULAR FILTR. RATE CALC > 60 mL/min (>60); GLUCOSE,RANDOM 135 mg/dL (70-110); POTASSIUM 3.9 mmol/L (3.5-5.1); SODIUM SERUM 139 mmol/L (136-145); UREA NITROGEN, BLOOD 46 mg/dL (7-18)
[2019-10-22 08:24] LABS: NEUTROPHILS % (AUTO) 89.5 % (40.0-70.0)
[2019-10-22 09:02] VITALS: BP 105/64
[2019-10-22] MEDS: PANTOPRAZOLE SODIUM 40 MG DR TABLET PO SCH (09:04)
[2019-10-22] MEDS: DOCUSATE SODIUM 100 MG CAPSULE PO SCH ×2 (09:04→20:24)
[2019-10-22] MEDS: AMINO ACIDS/PROTEIN HYDROLYS 30 ML TUBE PO SCH ×2 (09:05→19:02)
[2019-10-22] MEDS: HEPARIN SODIUM,PORCINE 5,000 UNITS/ML VIAL IVP PRN (09:11)
[2019-10-22 10:45] VITALS: BP 138/77
[2019-10-22 15:12] VITALS: BP 122/67
[2019-10-22] MEDS: MULTIVITAMINS WITH MINERALS, THERAPEUTIC TABLET GT SCH (20:24)
[2019-10-22 20:25] LABS: GLUCOMETER DEV NAME(LOC) 5S.1; GLUCOSE,POINT OF CARE 142 MG/DL (70-110)
[2019-10-22 21:06] VITALS: BP 123/70
[2019-10-22] MEDS: INSULIN LISPRO 100 UNITS/ML SQ PRN (23:34)
[2019-10-23 00:30] VITALS: BP 126/69
[2019-10-23 04:07] VITALS: BP 126/77
[2019-10-23] MEDS: INSULIN LISPRO 100 UNITS/ML SQ PRN ×3 (06:45→23:56)
[2019-10-23] MEDS: HEPARIN SODIUM 25000 UNITS/D5W 250 ML IV PRN (06:45)
[2019-10-23 06:49] LABS: GLUCOMETER DEV NAME(LOC) 5N.3; GLUCOSE,POINT OF CARE 162 MG/DL (70-110)
[2019-10-23 06:49] LABS: GLUCOMETER DEV NAME(LOC) 5N.3; GLUCOSE,POINT OF CARE 140 MG/DL (70-110)
[2019-10-23] MEDS: PANTOPRAZOLE SODIUM 40 MG DR TABLET PO SCH (09:41)
[2019-10-23] MEDS: DOCUSATE SODIUM 100 MG CAPSULE PO SCH ×2 (09:41→20:48)
[2019-10-23] MEDS: DEXAMETHASONE SOD PHOS 4 MG/ML VIAL IVP SCH ×3 (09:41→23:46)
[2019-10-23] MEDS: AMINO ACIDS/PROTEIN HYDROLYS 30 ML TUBE PO SCH ×2 (09:42→17:48)
[2019-10-23 11:26] VITALS: BP 120/73
[2019-10-23 13:11] LABS: GLUCOMETER DEV NAME(LOC) 5N.1; GLUCOSE,POINT OF CARE 136 MG/DL (70-110)
[2019-10-23 16:01] VITALS: BP 125/75
[2019-10-23 17:47] LABS: GLUCOMETER DEV NAME(LOC) 5S.2A; GLUCOSE,POINT OF CARE 132 MG/DL (70-110)
[2019-10-23 20:29] VITALS: BP 119/65
[2019-10-23] MEDS: MULTIVITAMINS WITH MINERALS, THERAPEUTIC TABLET GT SCH (20:48)
[2019-10-24] VITALS (7 sets, daily range): BP systolic 121–137; BP diastolic 62–78
[2019-10-24 01:06] LABS: GLUCOMETER DEV NAME(LOC) 5N.1; GLUCOSE,POINT OF CARE 142 MG/DL (70-110)
[2019-10-24 04:01] LABS: GLUCOMETER DEV NAME(LOC) 5S.2A; GLUCOSE,POINT OF CARE 164 MG/DL (70-110)
[2019-10-24] MEDS: INSULIN LISPRO 100 UNITS/ML SQ PRN ×3 (05:52→17:43)
[2019-10-24 07:05] LABS: D-DIMER 2.38 mg/L FEU (0.00-0.50)
[2019-10-24 07:12] LABS: HEMATOCRIT 36.2 % (36-46); MEAN CORPUSCULAR HEMOGLOBIN 29.3 pg (26.0-34.0); MEAN CORPUSCULAR HGB CONC 33.1 G/dL (31.0-37.0); MEAN CORPUSCULAR VOLUME 89 fL (80-100); PLATELET COUNT (AUTO) 432 K/uL (150-450); RED BLOOD CELL COUNT(AUTO) 4.09 MIL/uL (4.00-5.20); RED CELL DISTRIBUTION WIDTH 15.5 % (11.5-14.5)
[2019-10-24 07:20] LABS: ALANINE AMINOTRANSFERASE 125 U/L (12-78); ALBUMIN 2.5 g/dL (3.4-5.0); ALKALINE PHOSPHATASE 59 U/L (46-116); ANION GAP 10 mmol/L (8-16); ASPARTATE AMINOTRANSFERASE 32 U/L (15-37); BILIRUBIN,TOTAL 0.5 mg/dL (0.1-1.0); C-REACTIVE PROTEIN QUANT 0.14 mg/dL (0.00-0.30); CALCIUM, TOTAL 8.9 mg/dL (8.8-10.5); CARBON DIOXIDE 23 mmol/L (22-29); CHLORIDE 101 mmol/L (98-107); CREATININE 0.52 mg/dL (0.60-1.30); FERRITIN 396 ng/mL (8-252); GLOMERULAR FILTR. RATE CALC > 60 mL/min (>60); GLUCOSE,RANDOM 129 mg/dL (70-110); POTASSIUM 4.1 mmol/L (3.5-5.1); SODIUM SERUM 134 mmol/L (136-145); TOTAL PROTEIN, SERUM 6.9 g/dL (6.4-8.2); UREA NITROGEN, BLOOD 32 mg/dL (7-18)
[2019-10-24] MEDS: PANTOPRAZOLE SODIUM 40 MG DR TABLET PO SCH (08:11)
[2019-10-24] MEDS: DEXAMETHASONE SOD PHOS 4 MG/ML VIAL IVP SCH ×2 (08:11→17:41)
[2019-10-24] MEDS: DOCUSATE SODIUM 100 MG CAPSULE PO SCH ×2 (08:11→21:40)
[2019-10-24] MEDS: AMINO ACIDS/PROTEIN HYDROLYS 30 ML TUBE PO SCH ×2 (08:13→17:47)
[2019-10-24 08:32] LABS: GLUCOMETER DEV NAME(LOC) 5N.1; GLUCOSE,POINT OF CARE 142 MG/DL (70-110)
[2019-10-24 08:45] LABS: BAND NEUTROPHILS % (MANUAL) 2 % (0-5); EOSINOPHILS % (MANUAL) 1 % (1-6); LYMPHOCYTES % (MANUAL) 10 % (22-44); MONOCYTES % (MANUAL) 5 % (2-9); SEGMENTED NEUTROPHILS % 82 % (40-70)
[2019-10-24 21:28] LABS: GLUCOMETER DEV NAME(LOC) 5S.2A; GLUCOSE,POINT OF CARE 164 MG/DL (70-110)
[2019-10-24] MEDS: MULTIVITAMINS WITH MINERALS, THERAPEUTIC TABLET GT SCH (21:40)
[2019-10-25] MEDS: DEXAMETHASONE SOD PHOS 4 MG/ML VIAL IVP SCH ×4 (00:49→23:54)
[2019-10-25] MEDS: INSULIN LISPRO 100 UNITS/ML SQ PRN ×5 (00:52→23:58)
[2019-10-25 04:28] VITALS: BP 127/69
[2019-10-25 07:05] LABS: BASOPHILS % (AUTO) 0.2 % (0.0-2.0); EOSINOPHILS % (AUTO) 0.1 % (1.0-6.0); HEMATOCRIT 37.2 % (36-46); HEMOGLOBIN 12.3 g/dL (12.0-16.0); LYMPHOCYTES # (AUTO) 0.9 K/uL (1.0-4.8); LYMPHOCYTES % (AUTO) 5.9 % (22.0-44.0); MEAN CORPUSCULAR HEMOGLOBIN 29.4 pg (26.0-34.0); MEAN CORPUSCULAR HGB CONC 33.1 G/dL (31.0-37.0); MEAN CORPUSCULAR VOLUME 89 fL (80-100); MONOCYTES # (AUTO) 0.6 K/uL (0.1-1.0); MONOCYTES % (AUTO) 3.7 % (2.0-9.0); NEUTROPHILS # (AUTO) 14.4 K/uL (1.8-7.7); PLATELET COUNT (AUTO) 426 K/uL (150-450); RED BLOOD CELL COUNT(AUTO) 4.18 MIL/uL (4.00-5.20); RED CELL DISTRIBUTION WIDTH 15.7 % (11.5-14.5)
[2019-10-25 07:11] LABS: NEUTROPHILS % (AUTO) 90.1 % (40.0-70.0)
[2019-10-25 07:29] LABS: D-DIMER 2.4 mg/L FEU (0.00-0.50)
[2019-10-25 07:59] LABS: ALANINE AMINOTRANSFERASE 123 U/L (12-78); ALBUMIN 2.6 g/dL (3.4-5.0); ALKALINE PHOSPHATASE 63 U/L (46-116); ANION GAP 11 mmol/L (8-16); ASPARTATE AMINOTRANSFERASE 30 U/L (15-37); BILIRUBIN,TOTAL 0.5 mg/dL (0.1-1.0); C-REACTIVE PROTEIN QUANT 0.13 mg/dL (0.00-0.30); CALCIUM, TOTAL 8.8 mg/dL (8.8-10.5); CARBON DIOXIDE 23 mmol/L (22-29); CHLORIDE 102 mmol/L (98-107); CREATININE 0.59 mg/dL (0.60-1.30); FERRITIN 357 ng/mL (8-252); GLOMERULAR FILTR. RATE CALC > 60 mL/min (>60); GLUCOSE,RANDOM 135 mg/dL (70-110); SODIUM SERUM 136 mmol/L (136-145); TOTAL PROTEIN, SERUM 7.1 g/dL (6.4-8.2); UREA NITROGEN, BLOOD 41 mg/dL (7-18)
[2019-10-25 08:47] VITALS: BP 99/58
[2019-10-25] MEDS: DOCUSATE SODIUM 100 MG CAPSULE PO SCH ×2 (09:19→21:14)
[2019-10-25] MEDS: PANTOPRAZOLE SODIUM 40 MG DR TABLET PO SCH (09:21)
[2019-10-25] MEDS: AMINO ACIDS/PROTEIN HYDROLYS 30 ML TUBE PO SCH ×2 (09:23→17:39)
[2019-10-25 11:53] VITALS: BP 114/72
[2019-10-25] MEDS: HEPARIN SODIUM 25000 UNITS/D5W 250 ML IV PRN (12:15)
[2019-10-25 16:16] VITALS: BP 124/79
[2019-10-25 20:41] VITALS: BP 123/77
[2019-10-25] MEDS: MAGNESIUM HYDROXIDE SUSPENSION 30 ML UDCUP PO PRN (21:14)
[2019-10-25] MEDS: MULTIVITAMINS WITH MINERALS, THERAPEUTIC TABLET GT SCH (21:14)
[2019-10-25 21:45] LABS: GLUCOMETER DEV NAME(LOC) 5N.1; GLUCOSE,POINT OF CARE 148 MG/DL (70-110)
[2019-10-25 21:46] LABS: GLUCOMETER DEV NAME(LOC) 5N.1; GLUCOSE,POINT OF CARE 127 MG/DL (70-110)
[2019-10-25 21:46] LABS: GLUCOMETER DEV NAME(LOC) 5N.1; GLUCOSE,POINT OF CARE 150 MG/DL (70-110)
[2019-10-25 21:46] LABS: GLUCOMETER DEV NAME(LOC) 5N.1; GLUCOSE,POINT OF CARE 153 MG/DL (70-110)
[2019-10-25 21:46] LABS: GLUCOMETER DEV NAME(LOC) 5N.1; GLUCOSE,POINT OF CARE 132 MG/DL (70-110)
[2019-10-25 23:53] VITALS: BP 125/79
[2019-10-26 02:27] LABS: GLUCOMETER DEV NAME(LOC) 5N.1; GLUCOSE,POINT OF CARE 197 MG/DL (70-110)
[2019-10-26 05:03] VITALS: BP 120/68
[2019-10-26] MEDS: INSULIN LISPRO 100 UNITS/ML SQ PRN ×3 (06:13→18:31)
[2019-10-26 07:37] VITALS: BP 112/72
[2019-10-26 07:56] LABS: HEMATOCRIT 37.5 % (36-46); HEMOGLOBIN 12.6 g/dL (12.0-16.0); MEAN CORPUSCULAR HEMOGLOBIN 30.2 pg (26.0-34.0); MEAN CORPUSCULAR HGB CONC 33.6 G/dL (31.0-37.0); MEAN CORPUSCULAR VOLUME 90 fL (80-100); PLATELET COUNT (AUTO) 409 K/uL (150-450); RED BLOOD CELL COUNT(AUTO) 4.17 MIL/uL (4.00-5.20); RED CELL DISTRIBUTION WIDTH 16.6 % (11.5-14.5)
[2019-10-26 08:00] LABS: D-DIMER 3.78 mg/L FEU (0.00-0.50)
[2019-10-26 08:10] LABS: GLUCOMETER DEV NAME(LOC) 5N.3; GLUCOSE,POINT OF CARE 153 MG/DL (70-110)
[2019-10-26 08:20] LABS: ALANINE AMINOTRANSFERASE 110 U/L (12-78); ALBUMIN 2.7 g/dL (3.4-5.0); ALKALINE PHOSPHATASE 65 U/L (46-116); ANION GAP 13 mmol/L (8-16); ASPARTATE AMINOTRANSFERASE 28 U/L (15-37); BILIRUBIN,TOTAL 0.5 mg/dL (0.1-1.0); C-REACTIVE PROTEIN QUANT 0.08 mg/dL (0.00-0.30); CARBON DIOXIDE 22 mmol/L (22-29); CHLORIDE 102 mmol/L (98-107); CREATININE 0.57 mg/dL (0.60-1.30); FERRITIN 368 ng/mL (8-252); GLOMERULAR FILTR. RATE CALC > 60 mL/min (>60); GLUCOSE,RANDOM 140 mg/dL (70-110); POTASSIUM 3.9 mmol/L (3.5-5.1); SODIUM SERUM 137 mmol/L (136-145); TOTAL PROTEIN, SERUM 7.2 g/dL (6.4-8.2); UREA NITROGEN, BLOOD 45 mg/dL (7-18)
[2019-10-26] MEDS: DOCUSATE SODIUM 100 MG CAPSULE PO SCH ×2 (08:36→20:51)
[2019-10-26] MEDS: PANTOPRAZOLE SODIUM 40 MG DR TABLET PO SCH (08:36)
[2019-10-26] MEDS: DEXAMETHASONE SOD PHOS 4 MG/ML VIAL IVP SCH ×2 (08:36→16:36)
[2019-10-26] MEDS: AMINO ACIDS/PROTEIN HYDROLYS 30 ML TUBE PO SCH ×2 (08:37→16:36)
[2019-10-26] MEDS: HEPARIN SODIUM,PORCINE 5,000 UNITS/ML VIAL IVP PRN (08:41)
[2019-10-26 11:19] VITALS: BP 126/71
[2019-10-26 11:43] LABS: BAND NEUTROPHILS % (MANUAL) 2 % (0-5); LYMPHOCYTES % (MANUAL) 3 % (22-44); MONOCYTES % (MANUAL) 1 % (2-9); MYELOCYTES % 1 % (0-0); SEGMENTED NEUTROPHILS % 93 % (40-70)
[2019-10-26] MEDS: HEPARIN SODIUM 25000 UNITS/D5W 250 ML IV PRN (13:46)
[2019-10-26 16:56] VITALS: BP 117/64
[2019-10-26 20:28] LABS: GLUCOMETER DEV NAME(LOC) 5N.1; GLUCOSE,POINT OF CARE 148 MG/DL (70-110)
[2019-10-26 20:30] VITALS: BP 121/78
[2019-10-26] MEDS: MULTIVITAMINS WITH MINERALS, THERAPEUTIC TABLET GT SCH (20:51)
[2019-10-26 22:16] LABS: GLUCOMETER DEV NAME(LOC) 5N.3; GLUCOSE,POINT OF CARE 140 MG/DL (70-110)
[2019-10-27] VITALS (7 sets, daily range): BP systolic 113–126; BP diastolic 65–75
[2019-10-27] MEDS: DEXAMETHASONE SOD PHOS 4 MG/ML VIAL IVP SCH ×4 (00:14→23:53)
[2019-10-27] MEDS: BISACODYL 10 MG RECTAL RECTAL SUPPOSITORY PR PRN ×2 (00:15→20:14)
[2019-10-27] MEDS: INSULIN LISPRO 100 UNITS/ML SQ PRN ×2 (00:18→06:18)
[2019-10-27 04:11] LABS: GLUCOMETER DEV NAME(LOC) 5N.1; GLUCOSE,POINT OF CARE 129 MG/DL (70-110)
[2019-10-27 06:05] LABS: BASOPHILS % (AUTO) 0.1 % (0.0-2.0); EOSINOPHILS % (AUTO) 0 % (1.0-6.0); HEMATOCRIT 36.9 % (36-46); HEMOGLOBIN 12.4 g/dL (12.0-16.0); LYMPHOCYTES # (AUTO) 0.8 K/uL (1.0-4.8); MEAN CORPUSCULAR HEMOGLOBIN 30.1 pg (26.0-34.0); MEAN CORPUSCULAR HGB CONC 33.8 G/dL (31.0-37.0); MEAN CORPUSCULAR VOLUME 89 fL (80-100); MONOCYTES # (AUTO) 0.5 K/uL (0.1-1.0); MONOCYTES % (AUTO) 3.4 % (2.0-9.0); NEUTROPHILS # (AUTO) 12.7 K/uL (1.8-7.7); PLATELET COUNT (AUTO) 343 K/uL (150-450); RED BLOOD CELL COUNT(AUTO) 4.13 MIL/uL (4.00-5.20); RED CELL DISTRIBUTION WIDTH 16.8 % (11.5-14.5)
[2019-10-27 07:04] LABS: NEUTROPHILS % (AUTO) 90.5 % (40.0-70.0)
[2019-10-27 07:47] LABS: GLUCOMETER DEV NAME(LOC) 5N.1; GLUCOSE,POINT OF CARE 144 MG/DL (70-110)
[2019-10-27] MEDS: AMINO ACIDS/PROTEIN HYDROLYS 30 ML TUBE PO SCH ×2 (08:00→18:26)
[2019-10-27] MEDS: PANTOPRAZOLE SODIUM 40 MG DR TABLET PO SCH (08:36)
[2019-10-27] MEDS: DOCUSATE SODIUM 100 MG CAPSULE PO SCH ×2 (08:36→20:14)
[2019-10-27 12:39] LABS: GLUCOMETER DEV NAME(LOC) 5N.1; GLUCOSE,POINT OF CARE 129 MG/DL (70-110)
[2019-10-27 18:07] LABS: GLUCOMETER DEV NAME(LOC) 5N.3; GLUCOSE,POINT OF CARE 124 MG/DL (70-110)
[2019-10-27] MEDS: MULTIVITAMINS WITH MINERALS, THERAPEUTIC TABLET GT SCH (20:14)
[2019-10-27] MEDS: HEPARIN SODIUM,PORCINE 5,000 UNITS/ML VIAL SQ SCH (23:53)
[2019-10-28] MEDS: INSULIN LISPRO 100 UNITS/ML SQ PRN ×3 (00:01→20:19)
[2019-10-28 05:14] VITALS: BP 119/67
[2019-10-28 05:29] LABS: GLUCOMETER DEV NAME(LOC) 5N.1; GLUCOSE,POINT OF CARE 179 MG/DL (70-110)
[2019-10-28] MEDS: DOCUSATE SODIUM 100 MG CAPSULE PO SCH ×2 (07:41→20:18)
[2019-10-28] MEDS: DEXAMETHASONE SOD PHOS 4 MG/ML VIAL IVP SCH ×3 (07:42→23:58)
[2019-10-28] MEDS: HEPARIN SODIUM,PORCINE 5,000 UNITS/ML VIAL SQ SCH ×3 (07:42→23:58)
[2019-10-28] MEDS: PANTOPRAZOLE SODIUM 40 MG DR TABLET PO SCH (07:43)
[2019-10-28] MEDS: AMINO ACIDS/PROTEIN HYDROLYS 30 ML TUBE PO SCH ×2 (08:00→17:40)
[2019-10-28 08:23] VITALS: BP 124/67
[2019-10-28 12:10] VITALS: BP 145/81
[2019-10-28 12:45] LABS: GLUCOMETER DEV NAME(LOC) 5N.3; GLUCOSE,POINT OF CARE 148 MG/DL (70-110)
[2019-10-28 12:45] LABS: GLUCOMETER DEV NAME(LOC) 5N.3; GLUCOSE,POINT OF CARE 111 MG/DL (70-110)
[2019-10-28 15:14] VITALS: BP 151/76
[2019-10-28 18:16] LABS: GLUCOMETER DEV NAME(LOC) 5N.3; GLUCOSE,POINT OF CARE 122 MG/DL (70-110)
[2019-10-28 20:10] VITALS: BP 118/71
[2019-10-28] MEDS: MULTIVITAMINS WITH MINERALS, THERAPEUTIC TABLET GT SCH (20:18)
[2019-10-29 00:45] VITALS: BP 128/79
[2019-10-29 04:25] LABS: GLUCOMETER DEV NAME(LOC) 5N.1; GLUCOSE,POINT OF CARE 189 MG/DL (70-110)
[2019-10-29 05:02] VITALS: BP 124/76
[2019-10-29 07:17] VITALS: BP 102/71
[2019-10-29] MEDS: DEXAMETHASONE SOD PHOS 4 MG/ML VIAL IVP SCH ×2 (08:00→16:18)
[2019-10-29] MEDS: DOCUSATE SODIUM 100 MG CAPSULE PO SCH ×2 (09:38→20:26)
[2019-10-29] MEDS: HEPARIN SODIUM,PORCINE 5,000 UNITS/ML VIAL SQ SCH ×2 (09:38→16:18)
[2019-10-29] MEDS: PANTOPRAZOLE SODIUM 40 MG DR TABLET PO SCH (09:38)
[2019-10-29] MEDS: AMINO ACIDS/PROTEIN HYDROLYS 30 ML TUBE PO SCH ×2 (09:41→17:58)
[2019-10-29 10:11] LABS: BASOPHILS % (AUTO) 0.4 % (0.0-2.0); EOSINOPHILS % (AUTO) 0.2 % (1.0-6.0); HEMATOCRIT 37.8 % (36-46); HEMOGLOBIN 12.6 g/dL (12.0-16.0); LYMPHOCYTES # (AUTO) 1.1 K/uL (1.0-4.8); LYMPHOCYTES % (AUTO) 10.2 % (22.0-44.0); MEAN CORPUSCULAR HEMOGLOBIN 29.8 pg (26.0-34.0); MEAN CORPUSCULAR HGB CONC 33.2 G/dL (31.0-37.0); MEAN CORPUSCULAR VOLUME 90 fL (80-100); MONOCYTES # (AUTO) 0.5 K/uL (0.1-1.0); MONOCYTES % (AUTO) 4.9 % (2.0-9.0); NEUTROPHILS # (AUTO) 9.3 K/uL (1.8-7.7); NEUTROPHILS % (AUTO) 84.3 % (40.0-70.0); PLATELET COUNT (AUTO) 258 K/uL (150-450); RED BLOOD CELL COUNT(AUTO) 4.21 MIL/uL (4.00-5.20); RED CELL DISTRIBUTION WIDTH 16.5 % (11.5-14.5)
[2019-10-29 10:12] LABS: GLUCOMETER DEV NAME(LOC) 5N.3; GLUCOSE,POINT OF CARE 135 MG/DL (70-110)
[2019-10-29 10:47] LABS: ALANINE AMINOTRANSFERASE 74 U/L (12-78); ALBUMIN 2.7 g/dL (3.4-5.0); ALKALINE PHOSPHATASE 64 U/L (46-116); ANION GAP 9 mmol/L (8-16); ASPARTATE AMINOTRANSFERASE 30 U/L (15-37); BILIRUBIN,TOTAL 0.5 mg/dL (0.1-1.0); C-REACTIVE PROTEIN QUANT 0.11 mg/dL (0.00-0.30); CALCIUM, TOTAL 8.8 mg/dL (8.8-10.5); CARBON DIOXIDE 26 mmol/L (22-29); CHLORIDE 104 mmol/L (98-107); CREATININE 0.46 mg/dL (0.60-1.30); FERRITIN 299 ng/mL (8-252); GLOMERULAR FILTR. RATE CALC > 60 mL/min (>60); GLUCOSE,RANDOM 95 mg/dL (70-110); POTASSIUM 3.5 mmol/L (3.5-5.1); SODIUM SERUM 139 mmol/L (136-145); TOTAL PROTEIN, SERUM 6.9 g/dL (6.4-8.2); UREA NITROGEN, BLOOD 42 mg/dL (7-18)
[2019-10-29 11:22] VITALS: BP 105/61
[2019-10-29 16:06] VITALS: BP 123/70
[2019-10-29 19:51] VITALS: BP 122/70
[2019-10-29] MEDS: ONDANSETRON HCL 4 MG/2 ML VIAL IVP PRN (20:26)
[2019-10-29] MEDS: MULTIVITAMINS WITH MINERALS, THERAPEUTIC TABLET GT SCH (20:26)
[2019-10-29] MEDS: INSULIN LISPRO 100 UNITS/ML SQ PRN (20:30)
[2019-10-29 22:48] LABS: GLUCOMETER DEV NAME(LOC) 5N.1; GLUCOSE,POINT OF CARE 120 MG/DL (70-110)
[2019-10-29 23:36] LABS: GLUCOMETER DEV NAME(LOC) 5N.3; GLUCOSE,POINT OF CARE 194 MG/DL (70-110)
[2019-10-29 23:36] LABS: GLUCOMETER DEV NAME(LOC) 5N.3; GLUCOSE,POINT OF CARE 122 MG/DL (70-110)
[2019-10-30] MEDS: HEPARIN SODIUM,PORCINE 5,000 UNITS/ML VIAL SQ SCH ×3 (00:28→16:09)
[2019-10-30] MEDS: DEXAMETHASONE SOD PHOS 4 MG/ML VIAL IVP SCH ×2 (00:28→08:56)
[2019-10-30 00:43] VITALS: BP 113/72
[2019-10-30 04:41] VITALS: BP 107/72
[2019-10-30 08:15] VITALS: BP 120/78
[2019-10-30] MEDS: DOCUSATE SODIUM 100 MG CAPSULE PO SCH (08:56)
[2019-10-30] MEDS: PANTOPRAZOLE SODIUM 40 MG DR TABLET PO SCH (08:56)
[2019-10-30] MEDS: AMINO ACIDS/PROTEIN HYDROLYS 30 ML TUBE PO SCH (09:53)
[2019-10-30 11:09] VITALS: BP 123/76
[2019-10-30 12:22] LABS: GLUCOMETER DEV NAME(LOC) 5N.3; GLUCOSE,POINT OF CARE 133 MG/DL (70-110)
[2019-10-30] MEDS: INSULIN LISPRO 100 UNITS/ML SQ PRN (12:54)
[2019-10-30 13:14] LABS: GLUCOMETER DEV NAME(LOC) 5S.1; GLUCOSE,POINT OF CARE 121 MG/DL (70-110)
[2019-10-30] MEDS ORDERED: AMIN30LI28 PO (14:57)
[2019-10-30] MEDS ORDERED: HEPA500018 SQ (14:58)
[2019-10-30] MEDS ORDERED: MULT-1119 PO (14:58)
[2019-10-30] MEDS ORDERED: PANT-31 PO (14:59)
== END 2019-10-30 16:50 | DRG 720 ==
LOC: EMS 06:39 → 5N 18:04 → ICU 10-06 12:55 → 5S 10-19 17:20 → 5N 10-20 14:15
PROVIDERS: ADMIT Hospitalist; ATTEND Hospitalist
PROC: 30233K1 Transfusion of Nonautologous Frozen Plasma into Peripheral Vein, Percutaneous Approach (ICD-10-PCS; principal; 2019-10-04)
PROC: 5A1955Z Respiratory Ventilation, Greater than 96 Consecutive Hours (ICD-10-PCS; 2019-10-06)
PROC: 0BH17EZ Insertion of Endotracheal Airway into Trachea, Via Natural or Artificial Opening (ICD-10-PCS; 2019-10-06)
PROC: 03HY32Z Insertion of Monitoring Device into Upper Artery, Percutaneous Approach (ICD-10-PCS; 2019-10-06)
PROC: 4A133B1 Monitoring of Arterial Pressure, Peripheral, Percutaneous Approach (ICD-10-PCS; 2019-10-06)
PROC: 4A133J1 Monitoring of Arterial Pulse, Peripheral, Percutaneous Approach (ICD-10-PCS; 2019-10-06)
PROC: 02HV33Z Insertion of Infusion Device into Superior Vena Cava, Percutaneous Approach (ICD-10-PCS; 2019-10-06)
PROC: B548ZZA Ultrasonography of Superior Vena Cava, Guidance (ICD-10-PCS; 2019-10-06)
PROC: 30233K1 Transfusion of Nonautologous Frozen Plasma into Peripheral Vein, Percutaneous Approach (ICD-10-PCS; 2019-10-14)
PROC: 02HV33Z Insertion of Infusion Device into Superior Vena Cava, Percutaneous Approach (ICD-10-PCS; 2019-10-15)
PROC: B548ZZA Ultrasonography of Superior Vena Cava, Guidance (ICD-10-PCS; 2019-10-15)
DX: A41.89 Other specified sepsis (principal); U07.1 COVID-19; J15.1 Pneumonia due to Pseudomonas; E44.0 Moderate protein-calorie malnutrition; J12.89 Other viral pneumonia; D68.59 Other primary thrombophilia; J96.01 Acute respiratory failure with hypoxia; E83.42 Hypomagnesemia; E66.01 Morbid (severe) obesity due to excess calories; E87.6 Hypokalemia; I82.4Z9 Acute embolism and thrombosis of unspecified deep veins of unspecified distal lower extremity; Z68.28 Body mass index [BMI] 28.0-28.9, adult; Z79.899 Other long term (current) drug therapy; N93.9 Abnormal uterine and vaginal bleeding, unspecified
CPT/HCPCS: 36245; 36569; 36600; 51702; 70450; 76937; 82728; 82805; 83615; 83735; 84100; 84132; 84145; 84439; 84443; 85379; 85384; 86140; 86480; 86850; 86900; 86901; 86927; 87040; 87070; 87081; 87205; 87804; 92507; 92526; 92610; 93005; 93970; 94002; 94003; 97110; 97162; 97167; 97530; 97535; 99291; G0378; J0456; J0461; J0696; J0878; J1100; J1265; J1644; J1650; J1956; J2250; J2270; J2405; J2543; J2704; J3010; J3370; J3480; J3490; J7040; J7050; J7060; 36415-L1; 36415-TC; 71045-TC; 80202-TC; 81003-TC; 87635; U0003-CS